=== PATIENT | male | born 1960 | race Caucasian/White ===

== ENCOUNTER 2018-06-27 18:51 | Emergency (ER) | payer OTHER ==
[2018-06-27 19:33] LABS: Absolute Lymphocytes (CBC) 1.1 K/uL (0.7-4.9); Absolute Neutrophil 7.9 K/uL (1.8-8.0); Basophils % 0.8 % (0-1.3); Eosinophils % 0.8 % (0-4.4); Lymphocytes % 10.5 % (15.3-44.8); MPV 6.9 fL (7.6-11.3); Monocytes % 9.6 % (3.3-12.3); RBC Red Blood Cell Count 4.39 M/uL (4.33-5.43)
[2018-06-27 19:50] LABS: Albumin 3.5 g/dL (3.4-5.0); Bilirubin Direct 0.1 mg/dL (0-0.2); Bilirubin Total 0.7 mg/dL (0.2-1.0); Potassium 3.9 mmol/L (3.5-5.1); Protein, Total 7.3 g/dL (6.4-8.2)
[2018-06-27] MEDS ORDERED: NA CHLORIDE 0.9% 1,000 ML ONE (19:54)
--- NOTE | 2018-06-27 23:24 | EDPHYS ---
Physician Documentation [facility] Name: Kole Stone Age: 57 yrs Sex: Male : 1960 Arrival Date: 06/27/2018 Time: 18:54 Bed 14 Private MD: out of town, doctor ED Physician Amor Jeffries HPI: 06/27 19:27 This 57 yrs old Male presents to ER via Ambulatory with complaints of [facility] Abdominal Pain. 19:27 The patient presents with abdominal pain. Onset: The symptoms/episode began/occurred jmm gradually, 1 day(s) ago. The symptoms do not radiate. Associated signs and symptoms: Pertinent positives: diarrhea, fever. The symptoms are described as achy. Modifying factors: The symptoms are alleviated by walking. This is a 57 year old male with a history of HTN that presents to the ED with complaints of left lower abdominal pain beginning last night with diarrhea. Patient states developing fever and chills today. Denies history of intraabdominal surgery. . Historical: - Allergies: 19:02 No Known Allergies; la1 - Home Meds: 19:04 fenofibrate 150 mg oral cap 1 cap once daily [Active]; niacin 500 mg Oral tab 1 tab la1 daily [Active]; verapamil 240 mg Oral C24P 1 cap once daily [Active]; losartan 50 mg oral tab 1 tab once daily [Active]; - PMHx: 19:02 Hypertension; la1 - Immunization history:: Adult Immunizations up to date. - Social history:: Smoking status: Patient/guardian denies using tobacco. - Ebola Screening: : No symptoms or risks identified at this time. ROS: 19:27 Back: Negative for injury and pain, MS/Extremity: Negative for injury and deformity, jmm Skin: Negative for injury, rash, and discoloration, Neuro: Negative for headache, weakness, numbness, tingling, and seizure. 19:27 Constitutional: Positive for body aches, fever. 19:27 Abdomen/GI: Positive for abdominal pain, diarrhea. 19:27 All other systems are negative. Exam: 19:27 Constitutional: This is a well developed, well nourished patient who is awake, alert, jmm and in no acute distress. Head/Face: atraumatic. Eyes: EOMI, no conjunctival erythema appreciated ENT: Moist Mucus Membranes Neck: Trachea midline, Supple Chest/axilla: Normal chest wall appearance and motion. Cardiovascular: Regular rate and rhythm. No edema appreciated Respiratory: Normal respirations, no respiratory distress appreciated 19:27 Back: Normal ROM Skin: General appearance color normal MS/ Extremity: Moves all extremities, no obvious deformities appreciated, no edema noted to the lower extremities Neuro: Awake and alert, normal gait Psych: Behavior is normal, Mood is normal, Patient is cooperative and pleasant 19:27 Abdomen/GI: Inspection: obese Bowel sounds: normal, Palpation: soft, mild abdominal tenderness, in the left lower quadrant. 19:27 Back: ROM is normal. Vital Signs: 19:03 BP 145 / 85; Pulse 110; Resp 16; Pulse Ox 96% on R/A; Weight 97.52 kg; Height 6 ft. 1 la1 in. (185.42 cm); 19:06 Temp 100.3(O); jb4 20:30 BP 121 / 82; Pulse 80; Resp 16; Pulse Ox 98% on R/A; jb4 21:50 BP 132 / 81; Pulse 87; Resp 16; Pulse Ox 99% on R/A; jb4 23:00 BP 152 / 85; Pulse 89; Resp 16; Pulse Ox 98% on R/A; jb4 06/28 00:00 BP 142 / 83; Pulse 94; Resp 16; Pulse Ox 98% on R/A; jb4 06/27 19:03 Body Mass Index 28.37 (97.52 kg, 185.42 cm) la1 MDM: 06/27 19:20 Patient medically screened. [facility] 22:47 Data reviewed: vital signs, nurses notes. Transition of care: After a detail discussion travis of the patient's case, care is transferred to Amor Jeffries MD. 23:18 ED course: Discussed lab. and CT Scan results with patient. Advised hospitalization for pkl IV antibiotics. Patient does not want to be admitted at this time. Want to try outpatient treatment. Patient said he will return for hospitalization if not better in 1 to 2 days.. 23:26 ED course: Patient will sign AMA. pkl 06/27 19:09 Order name: Basic Metabolic Panel; Complete Time: 19:51 [facility] 06/27 19:09 Order name: CBC with Diff; Complete Time: 19:51 [facility] 06/27 19:09 Order name: Creatinine for Radiology; Complete Time: 19:51 [facility] 06/27 19:09 Order name: Hepatic Function; Complete Time: 19:51 [facility] 06/27 19:09 Order name: Lipase; Complete Time: 19:51 [facility] 06/27 19:09 Order name: IV Saline Lock; Complete Time: 19:22 [facility] 06/27 19:09 Order name: Labs collected and sent; Complete Time: 19:22 [facility] 06/27 19:53 Order name: CT Abd/Pelvis - Without Cont [facility] Administered Medications: 19:48 Drug: NS 0.9% 1000 ml Route: IV; Rate: 1 bolus; Site: left antecubital; jb4 21:00 Follow up: Response: No adverse reaction; IV Status: Completed infusion jb4 23:31 Drug: Cipro 400 mg Volume: 200 ml; Route: IVPB; Infused Over: 60 mins; Site: left 4 antecubital; 06/28 00:30 Follow up: Response: No adverse reaction; IV Status: Completed infusion jb4 06/27 23:31 Drug: Flagyl 500 mg Volume: 100 ml; Route: IVPB; Rate: 200 ml/hr; Infused Over: 30 jb4 mins; Site: left antecubital; 06/28 00:00 Follow up: Response: No adverse reaction; IV Status: Completed infusion jb4 Disposition: 06/27 23:06 Co-signature as Attending Physician, Amor Jeffries MD. pkellie Disposition: 06/27/18 23:24 Discharged to Home. Impression: Moderately severe sigmoid diverticulitis. Cholelithiasis. - Condition is Stable. - Prescriptions for Flagyl 500 mg Oral Tablet - take 1 tablet by ORAL route every 6 hours for 7 days; 28 tablet. Cipro 500 mg Oral Tablet - take 1 tablet by ORAL route every 12 hours for 7 days; 14 tablet. - Medication Reconciliation Form, Thank You Letter, Antibiotic Education, Prescription Opioid Use form. - Follow up: Private Physician; When: 1 - 2 days; Reason: Re-evaluation by your physician. - Problem is new. - Symptoms are unchanged. Signatures: Dispatcher [employer] EDAmor Sorenson MD MD pkJerry Mario PA PA jmm Attema, Lee RN RN la1 Vlad Jaimes RN RN jb4 Corrections: (The following items were deleted from the chart) 20:04 19:25 Abdomen Pelvis W Con+CT.RAD.BRZ ordered. [facility] EDMS 06/28 00:36 06/27 23:24 06/27/2018 23:24 Discharged to Home. Impression: Moderately severe sigmoid jb4 diverticulitis. Cholelithiasis. Condition is Stable. Forms are Medication Reconciliation Form, Thank You Letter, Antibiotic Education, Prescription Opioid Use. Follow up: Private Physician; When: 1 - 2 days; Reason: Re-evaluation by your physician. Problem is new. Symptoms are unchanged. pkl
--- NOTE | 2018-06-27 23:24 | ER ---
Nurse's Notes [facility] Name: Kole Stone Age: 57 yrs Sex: Male : 1960 Arrival Date: 06/27/2018 Time: 18:54 Bed 14 Private MD: out of town, doctor Diagnosis: Moderately severe sigmoid diverticulitis. Cholelithiasis Presentation: 06/27 19:02 Presenting complaint: Patient states: I had diarrhea last night and began having LLQ la1 abd pain and chills this morning. Transition of care: patient was not received from another setting of care. Onset of symptoms was June 27, 2018. Risk Assessment: Do you want to hurt yourself or someone else? Patient reports no desire to harm self or others. Care prior to arrival: None. 19:02 Method Of Arrival: Ambulatory la1 19:02 Acuity: JOYCE 3 la1 Historical: - Allergies: 19:02 No Known Allergies; la1 - Home Meds: 19:04 fenofibrate 150 mg oral cap 1 cap once daily [Active]; niacin 500 mg Oral tab 1 tab la1 daily [Active]; verapamil 240 mg Oral C24P 1 cap once daily [Active]; losartan 50 mg oral tab 1 tab once daily [Active]; - PMHx: 19:02 Hypertension; la1 - Immunization history:: Adult Immunizations up to date. - Social history:: Smoking status: Patient/guardian denies using tobacco. - Ebola Screening: : No symptoms or risks identified at this time. Screenin:10 Abuse screen: Denies threats or abuse. Nutritional screening: No deficits noted. jb4 Tuberculosis screening: No symptoms or risk factors identified. Fall Risk None identified. Assessment: 19:10 General: Appears in no apparent distress. comfortable, Behavior is calm, cooperative, jb4 appropriate for age. Pain: Complains of pain in abdomen Pain does not radiate. Pain currently is 0 out of 10 on a pain scale. at worst was 10 out of 10 on a pain scale. Quality of pain is described as crampy, Pain began 1 day ago. Is intermittent. Neuro: Level of Consciousness is awake, alert, obeys commands, Oriented to person, place, time, situation. Cardiovascular: Patient's skin is warm and dry. Respiratory: Airway is patent Respiratory effort is even, unlabored, Respiratory pattern is regular, symmetrical. GI: Abdomen is round non-distended, Bowel sounds present X 4 quads. Abd is soft X 4 quads Abd is non tender in right upper quadrant, left upper quadrant and right lower quadrant Abdomen is tender to palpation in umbilical area, suprapubic area and left lower quadrant Reports lower abdominal pain, diarrhea, Patient currently denies nausea. : No signs and/or symptoms were reported regarding the genitourinary system. EENT: No signs and/or symptoms were reported regarding the EENT system. Derm: Skin is intact, Skin is pink, warm \T\ dry. Musculoskeletal: Circulation, motion, and sensation intact. 20:09 Reassessment: pt finished PO contrast. CT notified. jd3 20:30 Reassessment: Patient appears in no apparent distress at this time. Patient and/or jb4 family updated on plan of care and expected duration. Pain level reassessed. Patient is alert, oriented x 3, equal unlabored respirations, skin warm/dry/pink. 21:50 Reassessment: Patient appears in no apparent distress at this time. Patient and/or jb4 family updated on plan of care and expected duration. Pain level reassessed. Patient is alert, oriented x 3, equal unlabored respirations, skin warm/dry/pink. 23:00 Reassessment: Patient appears in no apparent distress at this time. Patient and/or jb4 family updated on plan of care and expected duration. Pain level reassessed. Patient is alert, oriented x 3, equal unlabored respirations, skin warm/dry/pink. Provider is at the bedside. Pt refused admission and would rather continue treatment outpatient. 06/28 00:00 Reassessment: Patient appears in no apparent distress at this time. Patient and/or jb4 family updated on plan of care and expected duration. Pain level reassessed. Patient is alert, oriented x 3, equal unlabored respirations, skin warm/dry/pink. Waiting for IV antibiotics to finish before discharge. Vital Signs: 06/27 19:03 BP 145 / 85; Pulse 110; Resp 16; Pulse Ox 96% on R/A; Weight 97.52 kg; Height 6 ft. 1 la1 in. (185.42 cm); 19:06 Temp 100.3(O); jb4 20:30 BP 121 / 82; Pulse 80; Resp 16; Pulse Ox 98% on R/A; jb4 21:50 BP 132 / 81; Pulse 87; Resp 16; Pulse Ox 99% on R/A; jb4 23:00 BP 152 / 85; Pulse 89; Resp 16; Pulse Ox 98% on R/A; jb4 18 00:00 BP 142 / 83; Pulse 94; Resp 16; Pulse Ox 98% on R/A; jb4 06/27 19:03 Body Mass Index 28.37 (97.52 kg, 185.42 cm) [facility] ED Course: 06/27 18:54 Patient arrived in ED. mr 18:54 out of town, doctor is Private Physician. mr 19:02 Triage completed. la1 19:02 Arm band placed on. la1 19:06 Vlad Jaimes, SUKHJINDER is Primary Nurse. [facility] 19:09 Jerry Velasquez PA is PHCP. [facility] 19:09 Amor Jeffries MD is Attending Physician. [facility] 19:10 Patient has correct armband on for positive identification. Placed in gown. Bed in low jb4 position. Call light in reach. Side rails up X 1. Pulse ox on. NIBP on. 19:10 Initial lab(s) drawn, by ED staff, sent to lab. Inserted saline lock: 20 gauge in left jb4 antecubital area, using aseptic technique. Blood collected. 19:30 Radiology exam delayed due to lab results not completed at this time. (BUN/Creatinine). kw1 22:08 CT Abd/Pelvis - Without Cont In Process Unspecified. EDMS 06/28 00:35 No provider procedures requiring assistance completed. IV discontinued, intact, jb4 bleeding controlled. Administered Medications: 06/27 19:48 Drug: NS 0.9% 1000 ml Route: IV; Rate: 1 bolus; Site: left antecubital; 4 21:00 Follow up: Response: No adverse reaction; IV Status: Completed infusion [facility] 23:31 Drug: Cipro 400 mg Volume: 200 ml; Route: IVPB; Infused Over: 60 mins; Site: left jb4 antecubital; 06/28 00:30 Follow up: Response: No adverse reaction; IV Status: Completed infusion [facility] 06/27 23:31 Drug: Flagyl 500 mg Volume: 100 ml; Route: IVPB; Rate: 200 ml/hr; Infused Over: 30 jb4 mins; Site: left antecubital; 06/28 00:00 Follow up: Response: No adverse reaction; IV Status: Completed infusion jb4 Outcome: 06/27 23:24 Discharge ordered by . oscar 06/28 00:35 Discharged to home ambulatory, with friend. jb4 Condition: stable Discharge instructions given to patient, Instructed on discharge instructions, follow up and referral plans. medication usage, Demonstrated understanding of instructions, follow-up care, medications, Prescriptions given X 2. 00:36 Patient left the ED. jb4 Signatures: Dispatcher [employer] EDMS Amor Jeffries MD MD pkl Mickail, Joel, PA PA jmm EricSarahy mr Aliya, Kenneth, RN RN la1 Vlad Jaimes RN RN jb4 Quinten Castillo RN RN Vandana Thornton kw1 Corrections: (The following items were deleted from the chart) 06/27 19:31 19:10 GI: Abdomen is round non-distended, Bowel sounds present X 4 quads. Abd is soft X jb4 4 quads Abd is non tender in right upper quadrant, left upper quadrant and right lower quadrant Abdomen is tender to palpation in umbilical area, suprapubic area and left lower quadrant jb4 23: 23:00 Reassessment: Patient appears in no apparent distress at this time. Patient jb4 and/or family updated on plan of care and expected duration. Pain level reassessed. Patient is alert, oriented x 3, equal unlabored respirations, skin warm/dry/pink. jb4
[2018-06-27] MEDS ORDERED: CIPROFLOXACIN 400mg IV 400 MG/200 ML BAG IV ONE (23:35)
[2018-06-27] MEDS ORDERED: METRONIDAZOLE 500mg IVPB 500 MG/100 ML BAG IV ONE (23:36)
--- NOTE | 2018-06-29 12:06 | RAD REPORT ---
EXAM DESCRIPTION: CT - Abdomen Pelvis Wo Contrast - 06/27/2018 10:08 pm CLINICAL HISTORY: 57 years Male, PO contrast only. COMPARISON: None. TECHNIQUE: 5 mm axial images of the abdomen and pelvis were obtained without intravenous contrast. 1 .5 mm reformatted coronal and sagittal images . This exam was performed according to our departmental dose-optimization program, which includes autom ated exposure control, adjustment of the mA and/or kV according to patient size and/or less of iterat wayne reconstruction technique. FINDINGS: Lung bases: Pneumatoceles are identified in the right middle lobe. Liver: Diffuse fatty liver infiltration. Spleen: Normal. Pancreas: Normal. Gallbladder: Cholelithiasis. Right adrenal gland: Normal. Left adrenal gland: Normal. Right kidney: There is a cortical cyst 3.8 x 4.1 cm Left kidney: There is an exophytic cortical cyst in the left upper pole which measures 1.8 x 1.4 cm Retroperitoneal structures: There is diffuse atherosclerosis of the abdominal aorta. There is mild ec dani of the mid abdominal aorta. Bowel survey: There is moderately severe diverticulitis involving the proximal sigmoid colon in the l eft lower quadrant anteriorly. In this area there is mural thickening with moderate severe pericoloni c edema. There is no abscess. This extends over a distance of 7 cm. The appendix is unremarkable. The distal ileum is unremarkable. Urinary bladder: Normal. Prostate gland: Normal size. Peritoneal cavity: Normal. Mesentery structures: Normal. Abdominal wall: No suspicious lesions. IMPRESSION: 1. Moderately severe sigmoid diverticulitis. 2. Diffuse fatty liver infiltration. 3. Cholelithiasis. 4. Atherosclerotic disease. Electronically signed by Chivo Segovia MD 06/27/2018 10:21 PM [employer] Due to temporary technical issues with the PACS/Fluency reporting system, reports are being signed by the in house radiologist as a courtesy to ensure prompt reporting. The interpreting radiologist is f ully responsible for the content of the report.
== END 2018-06-28 00:36 | disposition home or self-care (01) ==
LOC: ER 18:51
DX: K57.32 Diverticulitis of large intestine without perforation or abscess without bleeding (principal); K80.20 Calculus of gallbladder without cholecystitis without obstruction; I10 Essential (primary) hypertension
CPT/HCPCS: 36415; 74176; 80048; 80076; 83690; 85025; 96361; 96365; 96368; 99284; J0744; J7030

== ENCOUNTER 2018-08-09 23:59 | Emergency (ER) | payer OTHER ==
[2018-08-10 00:37] LABS: Absolute Lymphocytes (CBC) 1.6 K/uL (0.7-4.9); Absolute Monocytes 0.7 K/uL (0.1-1.3); Absolute Neutrophil 3.1 K/uL (1.8-8.0); Eosinophils % 2.1 % (0-4.4); Hematocrit 36.6 % (39.6-49.0); Lymphocytes % 28.9 % (15.3-44.8); MPV 7.3 fL (7.6-11.3); Monocytes % 12.5 % (3.3-12.3); RBC Red Blood Cell Count 4.07 M/uL (4.33-5.43)
[2018-08-10 00:40] LABS: Protime INR 1.06
[2018-08-10 00:57] LABS: ALT/SGPT 20 U/L (12-78); AST/SGOT 14 U/L (15-37); Albumin 3.4 g/dL (3.4-5.0); Alkaline Phosphatase 60 U/L (45-117); BUN Blood Urea Nitrogen 17 mg/dL (7-18); Bicarbonate 25 mmol/L (21-32); Bilirubin Direct 0.2 mg/dL (0-0.2); Bilirubin Total 0.6 mg/dL (0.2-1.0); Glucose Level 130 mg/dL (74-106); Magnesium 2.1 mg/dL (1.8-2.4); NT PRO-BNP 104 pg/mL (<125); Potassium 3.9 mmol/L (3.5-5.1); Protein, Total 7.1 g/dL (6.4-8.2); Sodium Level 144 mmol/L (136-145); Troponin (Emerg Dept Use Only) < 0.02 ng/mL (0.0-0.045)
[2018-08-10] MEDS ORDERED: KETOROLAC 30 MG/ML INJ ONE (02:45)
--- NOTE | 2018-08-10 04:12 | ER ---
Nurse's Notes [facility] Name: Kole Stone Age: 57 yrs Sex: Male : 1960 Arrival Date: 08/10/2018 Time: 00:05 Bed 4 Private MD: Diagnosis: Chest pain, unspecified Presentation: 08/10 00:18 Presenting complaint: Patient states: right chest wall pain, right arm pain started ak1 Thursday morning. pt hx blood clot in lungs 2 years ago. Transition of care: patient was not received from another setting of care. Onset of symptoms was August 09, 2018. Risk Assessment: Do you want to hurt yourself or someone else? Patient reports no desire to harm self or others. Care prior to arrival: None. 00:18 Method Of Arrival: Wheelchair ak1 00:18 Acuity: JOYCE 3 ak1 00:23 Initial Sepsis Screen: Does the patient meet any 2 criteria? No. Patient's initial ak1 sepsis screen is negative. Does the patient have a suspected source of infection? No. Patient's initial sepsis screen is negative. Triage Assessment: 00:20 General: Appears in no apparent distress. Behavior is calm, cooperative. Pain: ak1 Complains of pain in right clavicle, anterior aspect of right upper chest and right breast. Historical: - Allergies: 00:20 No Known Allergies; ak1 - Home Meds: 00:20 fenofibrate 150 mg Oral cap 1 cap once daily [Active]; losartan 50 mg Oral tab 1 tab ak1 once daily [Active]; niacin 500 mg Oral tab 1 tab daily [Active]; verapamil 240 mg Oral C24P 1 cap once daily [Active]; aspirin 81 mg Oral TbEC 1 tab once daily [Active]; - PMHx: 00:20 Hypertension; ak1 - Immunization history:: Adult Immunizations unknown. - Social history:: Smoking status: Patient/guardian denies using tobacco, the patient reports quitting approximately 2 years ago. - Ebola Screening: : No symptoms or risks identified at this time. Screenin:22 Abuse screen: Denies threats or abuse. Denies injuries from another. Nutritional ak1 screening: No deficits noted. Tuberculosis screening: No symptoms or risk factors identified. Fall Risk None identified. Assessment: 00:22 Pain: Pain does not radiate. Pain began Chavo morning. ak1 00:23 Pain: Aggravated by deep breathing, lying down. ak1 00:25 General: Appears in no apparent distress. comfortable, well groomed, well developed, ao well nourished, Behavior is calm, cooperative, appropriate for age. Pain: Complains of pain in chest Pain does not radiate. Neuro: Level of Consciousness is awake, alert, obeys commands, Oriented to person, place, time, situation, Appropriate for age Moves all extremities. Full function Speech is normal, Facial symmetry appears normal, Pupils are PERRLA. Cardiovascular: Heart tones S1 S2 Capillary refill < 3 seconds Patient's skin is warm and dry. Respiratory: Airway is patent Respiratory effort is even, unlabored, Respiratory pattern is regular, symmetrical. GI: No signs and/or symptoms were reported involving the gastrointestinal system. : No signs and/or symptoms were reported regarding the genitourinary system. EENT: No signs and/or symptoms were reported regarding the EENT system. Derm: Skin is intact, Skin is pink, warm \T\ dry. normal, Skin temperature is warm. Musculoskeletal: Circulation, motion, and sensation intact. Range of motion:. 01:32 Reassessment: Patient appears in no apparent distress at this time. Patient and/or ao family updated on plan of care and expected duration. Pain level reassessed. Patient back from CT. Waiting on CT report at this time. 02:40 Reassessment: Patient appears in no apparent distress at this time. Patient and/or ao family updated on plan of care and expected duration. Pain level reassessed. Second Troponin to be send and then dispo. Patient under no distress. 04:00 Reassessment: Patient appears in no apparent distress at this time. Patient and/or ao family updated on plan of care and expected duration. Pain level reassessed. Waiting on dispo orders. Vital Signs: 00:17 BP 128 / 69; Pulse 85; Resp 18; Temp 98.5(O); Pulse Ox 100% on R/A; Weight 90.72 kg ak1 (R); Height 6 ft. 1 in. (185.42 cm) (R); Pain 8/10; 01:31 BP 121 / 72; Pulse 75; Resp 18; Pulse Ox 95% on R/A; ao 02:41 BP 123 / 74; Pulse 68; Resp 18; Pulse Ox 98% ; ao 04:09 BP 123 / 74; Pulse 64; Resp 18; Pulse Ox 94% ; ao 00:17 Body Mass Index 26.39 (90.72 kg, 185.42 cm) ak1 ED Course: 00:05 Patient arrived in ED. es 00:10 Skyler Red MD is Attending Physician. tw4 00:17 Arm band placed on Patient placed in an exam room, on a stretcher, on manager cardiac, ak1 on pulse oximetry, Patient notified of wait time. 00:19 Triage completed. ak1 00:22 Patient maintains SpO2 saturation greater than 95% on room air. ak1 00:23 Patient has correct armband on for positive identification. Placed in gown. Bed in low ak1 position. Side rails up X 1. court recording monitor on. Pulse ox on. NIBP on. 00:26 X-ray completed. Portable x-ray completed in exam room. Patient tolerated procedure kw well. 00:27 XRAY Chest (1 view) In Process Unspecified. EDMS 00:29 Clark Roberts, RN is Primary Nurse. ao 01:00 Inserted saline lock: 20 gauge in right antecubital area, using aseptic technique. ao Blood collected. 01:54 CT Chest For PE Angio In Process Unspecified. EDMS 04:24 No provider procedures requiring assistance completed. IV discontinued, intact, ao bleeding controlled, No redness/swelling at site. Pressure dressing applied. Administered Medications: 02:39 Drug: TORadol 30 mg Route: IVP; Site: right antecubital; ao 03:59 Follow up: Response: No adverse reaction ao Outcome: 04:11 Discharge ordered by . tw4 04:24 Discharged to home ambulatory. ao 04:24 Condition: stable 04:24 Discharge instructions given to patient, Instructed on discharge instructions, follow up and referral plans. Demonstrated understanding of instructions, follow-up care, medications. 04:25 Patient left the ED. ao Signatures: Dispatcher [employer] EDMS Karen Cardoza Kimberlee kw Krenek, Amber, RN RN ak1 Clark Roberts, Skyler Cisneros RN, MD MD tw4
--- NOTE | 2018-08-10 04:13 | EDPHYS ---
Physician Documentation [facility] Name: Kole Stone Age: 57 yrs Sex: Male : 1960 Arrival Date: 08/10/2018 Time: 00:05 Bed 4 Private MD: ED Physician Skyler Rde HPI: 08/10 00:18 This 57 yrs old Male presents to ER via Unassigned with complaints of Chest tw4 Pain, Breathing Difficulty. 00:18 The patient or guardian reports chest pain that is located primarily in the anterior tw4 chest wall, right. Onset: today. The pain does not radiate. Associated signs and symptoms: Pertinent positives: shortness of breath. The chest pain is described as dull. Duration: The patient or guardian reports a single episode. Modifying factors: The symptoms are alleviated by nothing. the symptoms are aggravated by nothing. Severity of pain: At its worst the pain was moderate in the emergency department the pain is unchanged. The patient has not experienced similar symptoms in the past. Historical: - Allergies: 00:20 No Known Allergies; ak1 - Home Meds: 00:20 fenofibrate 150 mg Oral cap 1 cap once daily [Active]; losartan 50 mg Oral tab 1 tab ak1 once daily [Active]; niacin 500 mg Oral tab 1 tab daily [Active]; verapamil 240 mg Oral C24P 1 cap once daily [Active]; aspirin 81 mg Oral TbEC 1 tab once daily [Active]; - PMHx: 00:20 Hypertension; ak1 - Immunization history:: Adult Immunizations unknown. - Social history:: Smoking status: Patient/guardian denies using tobacco, the patient reports quitting approximately 2 years ago. - Ebola Screening: : No symptoms or risks identified at this time. ROS: 00:18 Cardiovascular: Positive for chest pain, Negative for edema, orthopnea, palpitations. tw4 00:20 Constitutional: Negative for fever, chills, and weight loss, Cardiovascular: Negative tw4 for chest pain, palpitations, and edema. 00:20 Abdomen/GI: Negative for abdominal pain, nausea, vomiting, diarrhea, and constipation, Back: Negative for injury and pain, MS/Extremity: Negative for injury and deformity, Skin: Negative for injury, rash, and discoloration, Neuro: Negative for headache, weakness, numbness, tingling, and seizure. 00:20 Cardiovascular: Positive for Negative for 00:20 Respiratory: Positive for shortness of breath, Negative for cough, dyspnea on exertion, hemoptysis, orthopnea. 00:20 Respiratory: Positive for Exam: 00:18 Constitutional: This is a well developed, well nourished patient who is awake, alert, tw4 and in no acute distress. Head/Face: Normocephalic, atraumatic. Chest/axilla: Normal chest wall appearance and motion. Nontender with no deformity. No lesions are appreciated. Cardiovascular: Regular rate and rhythm with a normal S1 and S2. No gallops, murmurs, or rubs. Normal PMI, no JVD. No pulse deficits. Respiratory: Lungs have equal breath sounds bilaterally, clear to auscultation and percussion. No rales, rhonchi or wheezes noted. No increased work of breathing, no retractions or nasal flaring. Abdomen/GI: Soft, non-tender, with normal bowel sounds. No distension or tympany. No guarding or rebound. No evidence of tenderness throughout. Back: No spinal tenderness. No costovertebral tenderness. Full range of motion. Skin: Warm, dry with normal turgor. Normal color with no rashes, no lesions, and no evidence of cellulitis. MS/ Extremity: Pulses equal, no cyanosis. Neurovascular intact. Full, normal range of motion. Neuro: Awake and alert, GCS 15, oriented to person, place, time, and situation. Cranial nerves II-XII grossly intact. Motor strength 5/5 in all extremities. Sensory grossly intact. Cerebellar exam normal. Normal gait. Vital Signs: 00:17 BP 128 / 69; Pulse 85; Resp 18; Temp 98.5(O); Pulse Ox 100% on R/A; Weight 90.72 kg ak1 (R); Height 6 ft. 1 in. (185.42 cm) (R); Pain 8/10; 01:31 BP 121 / 72; Pulse 75; Resp 18; Pulse Ox 95% on R/A; ao 02:41 BP 123 / 74; Pulse 68; Resp 18; Pulse Ox 98% ; ao 04:09 BP 123 / 74; Pulse 64; Resp 18; Pulse Ox 94% ; ao 00:17 Body Mass Index 26.39 (90.72 kg, 185.42 cm) ak1 MDM: 00:10 Patient medically screened. 4 07:02 Differential diagnosis: abnormal EKG, acute myocardial infarction, pulmonary embolus, tw4 stable angina. Data reviewed: vital signs, nurses notes. Data interpreted: monitor tech: rhythm is normal sinus rhythm, with Pulse oximetry: Interpretation: normal. Test interpretation: by ED physician or midlevel provider: ECG, plain radiologic studies. Counseling: I had a detailed discussion with the patient and/or guardian regarding: the historical points, exam findings, and any diagnostic results supporting the discharge/admit diagnosis, lab results, radiology results. Special discussion: Based on the patient's history, exam, and Dx evaluation, there is no indication for emergent intervention or inpatient Tx. It is understood by the patient/guardian that if the Sx's persist or worsen they need to return immediately for re-evaluation. I discussed with the patient/guardian in detail that at this point there is no indication for admission to the hospital. It is understood, however, that if the symptoms persist or worsen the patient needs to return immediately for re-evaluation. 08/10 00:10 Order name: Basic Metabolic Panel 08/10 00:10 Order name: CBC with Diff; Complete Time: 02:14 08/10 02:14 Interpretation: Normal except: RBC 4.07; HGB 12.4; HCT 36.6; MN% 12.5; MPV 7.3. 08/10 00:10 Order name: LFT's; Complete Time: 02:16 08/10 02:17 Interpretation: Normal except: AST 14; GLOB 3.7; A/G 0.9. 08/10 00:10 Order name: Magnesium; Complete Time: 02:17 08/10 02:17 Interpretation: Within normal limits: MG 2.1. 08/10 00:10 Order name: NT PRO-BNP; Complete Time: 02:17 08/10 02:17 Interpretation: Within normal limits: NT PRO-BNP 104. 08/10 00:10 Order name: PT-INR; Complete Time: 02:17 08/10 02:17 Interpretation: Normal except: PT 12.5. 08/10 00:10 Order name: Troponin (emerg Dept Use Only); Complete Time: 02:17 08/10 02:17 Interpretation: Within normal limits: TROPED < 0.02. 4 08/10 00:10 Order name: XRAY Chest (1 view) 08/10 00:10 Order name: EKG; Complete Time: 00:12 4 08/10 00:10 Order name: Cardiac monitoring; Complete Time: 00:29 4 08/10 00:18 Order name: CT Chest For PE Angio tw4 08/10 02:32 Order name: Troponin I ao 08/10 00:10 Order name: EKG - Nurse/Tech; Complete Time: 00:30 08/10 00:10 Order name: IV Saline Lock; Complete Time: 00:30 08/10 00:10 Order name: Labs collected and sent; Complete Time: 00:29 08/10 00:10 Order name: O2 Per Protocol; Complete Time: 00:29 08/10 00:10 Order name: O2 Sat Monitoring; Complete Time: 00:29 tw4 EC:10 Rate is 79 beats/min. Rhythm is regular. QRS [place] is Normal. CO interval is normal. QRS tw4 interval is normal. QT interval is normal. No Q waves. T waves are Normal. No ST changes noted. Clinical impression: Normal ECG. Interpreted by me. Reviewed by me. Administered Medications: 02:39 Drug: TORadol 30 mg Route: IVP; Site: right antecubital; ao 03:59 Follow up: Response: No adverse reaction ao Disposition: 08/10/18 04:11 Discharged to Home. Impression: Chest pain, unspecified. - Condition is Stable. - Discharge Instructions: Nonspecific Chest Pain, Pain Without a Known Cause. - Medication Reconciliation Form, Thank You Letter, Antibiotic Education, Prescription Opioid Use form. - Follow up: Private Physician; When: Upon discharge from the Emergency Department; Reason: If symptoms return, Recheck today's complaints, Continuance of care. - Problem is new. - Symptoms have improved. Signatures: Dispatcher [employer] EDMS Shreya Rudd RN RN ak1 Clark Roberts RN RN Skyler Friend MD MD tw4 Corrections: (The following items were deleted from the chart) 00:21 00:18 Constitutional: Negative for fever, chills, and weight loss, Respiratory: tw4 Negative for shortness of breath, cough, wheezing, and pleuritic chest pain, Abdomen/GI: Negative for abdominal pain, nausea, vomiting, diarrhea, and constipation, Back: Negative for injury and pain, MS/Extremity: Negative for injury and deformity, Skin: Negative for injury, rash, and discoloration, Neuro: Negative for headache, weakness, numbness, tingling, and seizure, tw4 01:53 00:19 Chest For Pe Angio ordered. EDKY EDMS 04:25 04:11 08/10/2018 04:11 Discharged to Home. Impression: Chest pain, unspecified. ao Condition is Stable. Forms are Medication Reconciliation Form, Thank You Letter, Antibiotic Education, Prescription Opioid Use. Follow up: Private Physician; When: Upon discharge from the Emergency Department; Reason: If symptoms return, Recheck today's complaints, Continuance of care. Problem is new. Symptoms have improved. tw4
--- NOTE | 2018-08-10 08:32 | RAD REPORT ---
EXAM DESCRIPTION: Asael Single View08/10/2018 12:29 am CLINICAL HISTORY: Shortness of breath COMPARISON: None FINDINGS: A large bleb is present within the medial right hemithorax. COPD The lungs appear clear of acute infiltrate. The heart is normal size
--- NOTE | 2018-08-10 11:35 | RAD REPORT ---
EXAM DESCRIPTION: CT - Chest For Pe Angio - 08/10/2018 5:14 am CLINICAL HISTORY: Chest pain COMPARISON: None TECHNIQUE: Axial [address] imaging of the thorax utilizing intravenous contrast. Reformatted coronal and sagital images reviewed. Reconstructed axial, coronal and sagittal maximum intensity projection images of the pulmonary vasculature also reviewed. This exam was performed according to our departmental dose-optimization program which includes use of Automated Exposure Control, adjustment of the mA and/or kV according to patient size and/or use of iterative reconstruction technique. FINDINGS: PULMONARY ARTERIES: Normal caliber main pulmonary artery. There is a filling defect within the central peripheral pulmonary vascular. No filling defect within the right atrium or ventricle. HEART/GREAT VESSELS: Heart is normal in size. No pericardial fluid. Normal caliber thoracic aorta. Normal branch pattern of the arch vessels. MEDIASTINUM/CHRIS: No adenopathy. Normal appearance of the central airways. Normal esophagus. LUNGS/PLEURA: There are numerous subpleural blebs throughout the upper lobes. There are large anterior right upper lobe and right middle lobe chris. There is a layering fluid level within the anterior right upper lobe bulla. There is no pneumothorax No consolidation. Mild bilateral lower lobe dependent atelectasis. No edema. CHEST WALL/SOFT TISSUES: Mild thoracic spondylosis. Unremarkable imaged thyroid. No axillary adenopathy. UPPER ABDOMEN: Mild decreased liver attenuation due to fatty infiltration. A few small stones are seen in the dependent gallbladder. No evidence of cholecystitis. Unremarkable spleen, imaged pancreas, adrenal glands, and superior pole of the right kidney. There is a superior left renal 1.8 cm cyst. Unremarkable imaged bowel loops. IMPRESSION: 1. No pulmonary embolism 2. 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 No surrounding inflammatory changes. 3. Fatty liver 4. Left renal cysts. 5. Cholelithiasis. No evidence of cholecystitis. Electronically signed by: Jody Heredia DO 08/10/2018 2:07 AM CDT Due to temporary technical issues with the PACS/Fluency reporting system, reports are being signed by the in house radiologist as a courtesy to ensure prompt reporting. The interpreting radiologist is fully responsible for the content of the report. ADARSH
== END 2018-08-10 04:25 | disposition home or self-care (01) ==
LOC: ER 23:59
DX: R07.9 Chest pain, unspecified (principal); I10 Essential (primary) hypertension; Z72.0 Tobacco use; Z79.82 Long term (current) use of aspirin
CPT/HCPCS: 36415; 71045; 71275; 80048; 80076; 83735; 83880; 84484; 85025; 85610; 93005; 96374; 99285; Q9967

== ENCOUNTER 2019-03-27 10:54 | Emergency (ER) | payer OTHER ==
[2019-03-27] MEDS ORDERED: LIDOCAINE 1% W/EPI 1:100,000 MDV 20 ML VIAL ONE (11:34)
[2019-03-27] MEDS ORDERED: DOXYCYCLINE 100 MG CAP PO ONE (11:53)
--- NOTE | 2019-03-27 11:59 | ER ---
Nurse's Notes [facility] Name: Kole Stone Age: 58 yrs Sex: Male : 1960 Arrival Date: 03/27/2019 Time: 10:56 Bed 2 Private MD: Diagnosis: Cutaneous abscess of foot;Puncture wound with foreign body, unspecified foot Presentation: 03/27 11:05 Presenting complaint: Patient states: He stepped on something a week and a half ago, he aj1 didn't think that he felt anything stuck in the wound, but now he is having he is having pain and swelling to the bottom of his left foot. Reports that his last tetanus shot was over 10 years ago. Transition of care: patient was not received from another setting of care. Onset of symptoms was 2018. Risk Assessment: Do you want to hurt yourself or someone else? Patient reports no desire to harm self or others. Initial Sepsis Screen: Does the patient meet any 2 criteria? No. Patient's initial sepsis screen is negative. Does the patient have a suspected source of infection? Yes: Skin breakdown/wound. Care prior to arrival: None. 11:05 Method Of Arrival: Ambulatory aj1 11:05 Acuity: JOYCE 3 aj1 Triage Assessment: 11:08 General: Appears in no apparent distress. Behavior is calm, cooperative, appropriate aj1 for age. Pain: Complains of pain in left foot. Historical: - Allergies: 11:08 No Known Allergies; aj1 - Home Meds: 11:08 verapamil 240 mg Oral C24P 1 cap once daily [Active]; losartan 50 mg Oral tab 1 tab aj1 once daily [Active]; pravastatin oral oral [Active]; - PMHx: 11:08 Hypertension; Hyperlipidemia; aj1 - PSHx: 11:08 facial surgery; leg surgery; aj1 - Immunization history:: Last tetanus immunization: > 10 years ago Flu vaccine is up to date. - Social history:: Smoking status: Patient/guardian denies using tobacco. - Ebola Screening: : Patient denies travel to an Ebola-affected area in the 21 days before illness onset. - Family history:: not pertinent. Screenin:09 Abuse screen: Denies threats or abuse. Denies injuries from another. Nutritional aj1 screening: No deficits noted. Tuberculosis screening: No symptoms or risk factors identified. 12:52 Fall Risk None identified. aj1 Assessment: 11:09 General: Appears in no apparent distress. comfortable, Behavior is calm, cooperative, aj1 appropriate for age. Pain: Complains of pain in left foot Pain does not radiate. Pain currently is 0 out of 10 on a pain scale. at worst was 3 out of 10 on a pain scale. Aggravated by weight bearing. Neuro: Level of Consciousness is awake, alert, obeys commands, Oriented to person, place, time, situation. Cardiovascular: Patient's skin is warm and dry. Respiratory: Airway is patent Respiratory effort is even, unlabored, Respiratory pattern is regular, symmetrical. GI: No signs and/or symptoms were reported involving the gastrointestinal system. : No signs and/or symptoms were reported regarding the genitourinary system. EENT: No signs and/or symptoms were reported regarding the EENT system. Derm: Abscess located on ball of left foot is quarter sized, is red, is raised. Musculoskeletal: No signs and/or symptoms reported regarding the musculoskeletal system. Circulation, motion, and sensation intact. 12:00 Reassessment: Discharge pending MD performing I\T\D of patient's abscess. aj1 Vital Signs: 11:08 BP 153 / 81; Pulse 85; Resp 18; Temp 98.7; Pulse Ox 99% on R/A; Weight 86.18 kg (R); aj1 Height 6 ft. 1 in. (185.42 cm) (R); Pain 0/10; 12:52 BP 149 / 87; Pulse 68; Resp 18; Pulse Ox 100% on R/A; aj1 11:08 Body Mass Index 25.07 (86.18 kg, 185.42 cm) aj1 ED Course: 10:56 Patient arrived in ED. as 10:59 Cynthia Chavez, SUKHJINDER is Primary Nurse. aj1 11:00 Paulino Ferreira MD is Attending Physician. idalmis 11:07 Triage completed. aj1 11:08 Arm band placed on. aj1 11:09 Patient has correct armband on for positive identification. Bed in low position. Call aj1 light in reach. Side rails up X 1. 11:09 No provider procedures requiring assistance completed. aj1 12:51 Patient did not have IV access during this emergency room visit. aj1 Administered Medications: 12:18 Drug: Neosporin Ointment 1 application Route: Topical; Site: affected area; aj1 12:24 Follow up: Response: No adverse reaction aj1 12:18 Drug: Doxycycline 200 mg Route: PO; aj1 12:25 Follow up: Response: No adverse reaction aj1 12:18 Drug: Bactrim (160 mg-800 mg (DS) 1 tablet Route: PO; aj1 12:25 Follow up: Response: No adverse reaction aj1 12:19 Drug: Tetanus-Diphtheria Toxoid Adult 0.5 ml {Customer Solutions Architect: [employer]. Exp: aj1 10/14/2020. Lot #: [id number]. } Route: IM; Site: left deltoid; 12:25 Follow up: Response: No adverse reaction aj1 Outcome: 11:58 Discharge ordered by MD. raygoza 12:51 Discharged to home ambulatory. aj1 12:51 Condition: good 12:51 Discharge instructions given to patient, Instructed on discharge instructions, follow up and referral plans. no drinking with medication, no driving heavy equipment, medication usage, Demonstrated understanding of instructions, follow-up care, medications, Prescriptions given X 3. 12:52 Patient left the ED. aj1 Signatures: Cynthia Chavez, RN RN aj1 Paulino Ferreira MD MD cha Martinez, Amelia as
--- NOTE | 2019-03-27 11:59 | EDPHYS ---
Physician Documentation [facility] Name: Kole Stone Age: 58 yrs Sex: Male : 1960 Arrival Date: 03/27/2019 Time: 10:56 Bed 2 Private MD: JASWANT Physician Paulino Ferreira HPI: 03/27 11:45 This 58 yrs old Male presents to ER via Ambulatory with complaints of Feet idalmis Swelling. 11:45 The patient presents with pain, swelling. The complaints affect the left foot. Context: idalmis The problem was sustained at home. Onset: The symptoms/episode began/occurred 2 day(s) ago. Modifying factors: The symptoms are alleviated by nothing, the symptoms are aggravated by nothing. Associated signs and symptoms: The patient has no apparent associated signs or symptoms. The patient has not experienced similar symptoms in the past. Historical: - Allergies: 11:08 No Known Allergies; aj1 - Home Meds: 11:08 verapamil 240 mg Oral C24P 1 cap once daily [Active]; losartan 50 mg Oral tab 1 tab aj1 once daily [Active]; pravastatin oral oral [Active]; - PMHx: 11:08 Hypertension; Hyperlipidemia; aj1 - PSHx: 11:08 facial surgery; leg surgery; aj1 - Immunization history:: Last tetanus immunization: > 10 years ago Flu vaccine is up to date. - Social history:: Smoking status: Patient/guardian denies using tobacco. - Ebola Screening: : Patient denies travel to an Ebola-affected area in the 21 days before illness onset. - Family history:: not pertinent. ROS: 11:45 Constitutional: Negative for fever, chills, and weight loss, Eyes: Negative for injury, idalmis pain, redness, and discharge, ENT: Negative for injury, pain, and discharge, Neck: Negative for injury, pain, and swelling, Cardiovascular: Negative for chest pain, palpitations, and edema, Respiratory: Negative for shortness of breath, cough, wheezing, and pleuritic chest pain, Abdomen/GI: Negative for abdominal pain, nausea, vomiting, diarrhea, and constipation, Back: Negative for injury and pain, : Negative for injury, bleeding, discharge, and swelling, Skin: Negative for injury, rash, and discoloration, Neuro: Negative for headache, weakness, numbness, tingling, and seizure, Psych: Negative for depression, anxiety, suicide ideation, homicidal ideation, and hallucinations, Allergy/Immunology: Negative for hives, rash, and allergies, Endocrine: Negative for neck swelling, polydipsia, polyuria, polyphagia, and marked weight changes, Hematologic/Lymphatic: Negative for swollen nodes, abnormal bleeding, and unusual bruising. 11:45 MS/extremity: Positive for decreased range of motion, pain, swelling, tenderness, of the right foot. Exam: 11:45 Constitutional: This is a well developed, well nourished patient who is awake, alert, idalmis and in no acute distress. Head/Face: Normocephalic, atraumatic. Eyes: Pupils equal round and reactive to light, extra-ocular motions intact. Lids and lashes normal. Conjunctiva and sclera are non-icteric and not injected. Cornea within normal limits. Periorbital areas with no swelling, redness, or edema. ENT: Nares patent. No nasal discharge, no septal abnormalities noted. Tympanic membranes are normal and external auditory canals are clear. Oropharynx with no redness, swelling, or masses, exudates, or evidence of obstruction, uvula midline. Mucous membranes moist. Neck: Trachea midline, no thyromegaly or masses palpated, and no cervical lymphadenopathy. Supple, full range of motion without nuchal rigidity, or vertebral point tenderness. No Meningismus. Chest/axilla: Normal chest wall appearance and motion. Nontender with no deformity. No lesions are appreciated. Cardiovascular: Regular rate and rhythm with a normal S1 and S2. No gallops, murmurs, or rubs. Normal PMI, no JVD. No pulse deficits. Respiratory: Lungs have equal breath sounds bilaterally, clear to auscultation and percussion. No rales, rhonchi or wheezes noted. No increased work of breathing, no retractions or nasal flaring. Abdomen/GI: Soft, non-tender, with normal bowel sounds. No distension or tympany. No guarding or rebound. No evidence of tenderness throughout. Back: No spinal tenderness. No costovertebral tenderness. Full range of motion. Male : Normal genitalia with no discharge or lesions. Skin: Warm, dry with normal turgor. Normal color with no rashes, no lesions, and no evidence of cellulitis. Neuro: Awake and alert, GCS 15, oriented to person, place, time, and situation. Cranial nerves II-XII grossly intact. Motor strength 5/5 in all extremities. Sensory grossly intact. Cerebellar exam normal. Normal gait. Psych: Awake, alert, with orientation to person, place and time. Behavior, mood, and affect are within normal limits. 11:45 Musculoskeletal/extremity: Extremities: noted in the arch of right foot: decreased ROM, pain, swelling, tenderness. Vital Signs: 11:08 BP 153 / 81; Pulse 85; Resp 18; Temp 98.7; Pulse Ox 99% on R/A; Weight 86.18 kg (R); aj1 Height 6 ft. 1 in. (185.42 cm) (R); Pain 0/10; 12:52 BP 149 / 87; Pulse 68; Resp 18; Pulse Ox 100% on R/A; aj1 11:08 Body Mass Index 25.07 (86.18 kg, 185.42 cm) [facility] Procedures: 11:57 I \T\ D: Incision and drainage was performed for an abscess of the right Prepped with [facility] Betadine, Anesthetized with 5 ml's 1% Lidocaine w/ Epi. Incised with #11 blade. Drained small amount Dressing: non-Adherent dressing, the patient tolerated the procedure well. MDM: 11:00 Patient medically screened. [facility] 11:56 Data reviewed: vital signs, nurses notes. [facility] 03/27 11:45 Order name: Dressing - Wound; Complete Time: 11:45 [facility] 03/27 11:45 Order name: Gloves, Sterile; Complete Time: 11:45 [facility] 03/27 11:45 Order name: Setup Suture Tray; Complete Time: 11:45 [facility] 03/27 11:45 Order name: Wound Care; Complete Time: 12:18 [facility] Administered Medications: 12:18 Drug: Neosporin Ointment 1 application Route: Topical; Site: affected area; aj 12:24 Follow up: Response: No adverse reaction aj1 12:18 Drug: Doxycycline 200 mg Route: PO; aj1 12:25 Follow up: Response: No adverse reaction aj1 12:18 Drug: Bactrim (160 mg-800 mg (DS) 1 tablet Route: PO; aj1 12:25 Follow up: Response: No adverse reaction [facility] 12:19 Drug: Tetanus-Diphtheria Toxoid Adult 0.5 ml {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 Exp: aj1 10/14/2020. Lot #: [id number]. } Route: IM; Site: left deltoid; 12:25 Follow up: Response: No adverse reaction aj1 Disposition: 03/27/19 11:58 Discharged to Home. Impression: Cutaneous abscess of foot, Puncture wound with foreign body, unspecified foot. - Condition is Stable. - Discharge Instructions: Skin Abscess, Puncture Wound, Skin Abscess, [id number], Puncture Wound, [id number], Percutaneous Abscess Drain. - Prescriptions for Tylenol- Codeine #3 300-30 mg Oral Tablet - take 2 tablets by ORAL route every 6 hours As needed; 26 tablet. Doxycycline Hyclate 100 mg Oral Tablet - take 1 tablet by ORAL route every 12 hours; 14 tablet. Bactrim DS 800- 160 mg Oral Tablet - take 1 tablet by ORAL route every 12 hours for 7 days; 14 tablet. - Medication Reconciliation Form, Thank You Letter, Antibiotic Education, Prescription Opioid Use form. - Follow up: Private Physician; When: 2 - 3 days; Reason: Recheck today's complaints, Continuance of care, Re-evaluation by your physician. - Problem is new. - Symptoms have improved. Signatures: Cynthia Chavez RN RN aj1 Paulino Ferreira MD MD cha Corrections: (The following items were deleted from the chart) 12:17 11:45 Ortho shoe ordered. [facility] bp 12:52 11:58 03/27/2019 11:58 Discharged to Home. Impression: Cutaneous abscess of foot; aj1 Puncture wound with foreign body, unspecified foot. Condition is Stable. Forms are Medication Reconciliation Form, Thank You Letter, Antibiotic Education, Prescription Opioid Use. Follow up: Private Physician; When: 2 - 3 days; Reason: Recheck today's complaints, Continuance of care, Re-evaluation by your physician. Problem is new. Symptoms have improved. [facility]
[2019-03-27] MEDS ORDERED: SMZ./TMP. 800/160 MG TABLET ONE (12:04)
[2019-03-27] MEDS ORDERED: TETANUS & DIPHTHERIA TOX,ADULT 0.5 ML VIAL ONE (12:05)
[2019-03-27 12:57] VITALS: TEMP 98.7
[2019-03-27 12:58] VITALS: BP 149/87; O2SAT 100
== END 2019-03-27 12:52 | disposition home or self-care (01) ==
LOC: ER 10:54
PROC: 0J9Q0ZZ Drainage of Right Foot Subcutaneous Tissue and Fascia, Open Approach (ICD-10-PCS; principal; 2019-03-27)
DX: S91.332A Puncture wound without foreign body, left foot, initial encounter (principal); L02.611 Cutaneous abscess of right foot; W26.9XXA Contact with unspecified sharp object(s), initial encounter; Y93.9 Activity, unspecified; Y92.9 Unspecified place or not applicable
CPT/HCPCS: 90471; 90714; 99283

== ENCOUNTER 2021-07-29 06:00 | Emergency (ER) | payer OTHER ==
--- OUTSIDE RECORDS SUMMARY | 2021-07-29 06:02 | XMS REPORT | Continuity of Care Document ---
:1960 Author Organization [facility] t Address [address] [place] [address] Care Team Providers Name Role Phone LEATHA APPLE Primary Care Physician Unavailable RADIOLOGY Attending Clinician Unavailable Radiology Attending Clinician Unavailable LEATHA APPLE Admitting Clinician Unavailable Payers Payer Name Policy Type Policy Number Effective Date Expiration Date Kendall [employer]UN[employer] CHOICE [id number] 2019 2020 00:00:00 POS II 00:00:00 Problems This patient has no known problems. Allergies, Adverse Reactions, Alerts Allergy Allergy Status Severity Reaction(s) Onset Inactive Treating Comm ents Source Name Type Date Date Clinician NO KNOWN Drug Active [facility] ALLERGIE Class it of [facility] Social History Social Habit Start Date Stop Date Quantity Comments Source Sex Assigned At [facility] to SARS-CoV-2 [facility] sure [facility] Smoking Status Start Date Stop Date Source Unknown if ever smoked [facility] Medications This patient has no known medications. Procedures Procedure Date / Time Performed Performing Clinician Sourrichard e XR HAND 3+ VW RIGHT 2019-11-01 19:37:31 James Burnett [facility] Encounters Start End Encounter Admission Attending Care Care Encounter Source Date/Time Date/Time Type Type Clinicians Facility Department ID 2019-12-14 2019-12-14 Outpatient R [facility] [id number] Univers 00:00:00 00:00:00 ity [facility] 2019-11-01 2019-11-01 Outpatient R RADIOLOGY [facility] [id number] [facility] 14:19[facility]23 [facility] 2019-11-01 Hospital Radiology [facility] [id number] Univers 14:19:00 23:59:00 [id number] [place] [id number] [id number] [facility] [address] Results Test Test Test Results Result Source Description Time Comments Comments XR HAND 3+ VW 2019-10- HISTORY: ?Pain. FINDINGS: [facility] [place] [address] AP, lateral, oblique views [facility] 19:39:13 of right hand showed no B ranch acute fractureor dislocation. 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 No bony erosions or juxta-articularosteoporosis detected. No soft tissue calcifications. CONCLUSIONS: No acute fracture or dislocation in right hand. [facility], Radiant Results Inft User - 11/01/2019 2:40 PM CDTHISTORY: Pain.FINDINGS: AP, lateral, oblique views of right hand showed no acute fractureor dislocation. 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 No bony erosions or juxta-articularosteoporosis detected. No soft tissue calcifications.CONCLUSIONS: No acute fracture or dislocation in right hand.
--- NOTE | 2021-07-29 06:30 | ER ---
Nurse's Notes [facility] Name: Kole Stone Age: 60 yrs Sex: Male : 1960 Arrival Date: 07/29/2021 Time: 06:04 Bed 5 Private MD: Diagnosis: Abdominal pain, unspecified Presentation: 07/29 06:14 Chief complaint: Patient states: "I've had gall stones on and off for a few years now, vc1 I woke up at 0400 in pretty bad pain.". Coronavirus screen: Vaccine status: Patient reports being unvaccinated. At this time, the client does not indicate any symptoms associated with coronavirus-19. Ebola Screen: No symptoms or risks identified at this time. 06:14 Method Of Arrival: Ambulatory vc1 06:15 Initial Sepsis Screen: Does the patient meet any 2 criteria? No. Patient's initial vc1 sepsis screen is negative. Does the patient have a suspected source of infection? No. Patient's initial sepsis screen is negative. Risk Assessment: Do you want to hurt yourself or someone else? Patient reports no desire to harm self or others. Onset of symptoms was July 29, 2021 at 04:00. 06:15 Acuity: JOYCE 3 vc1 Triage Assessment: 06:15 General: Appears in no apparent distress. uncomfortable, Behavior is calm, cooperative, vc1 appropriate for age. Pain: Complains of pain in right upper quadrant Pain radiates to right subscapular area Pain currently is 8 out of 10 on a pain scale. GI: Abd is soft Abd is non tender Reports upper abdominal pain. Historical: - Allergies: 06:17 No Known Allergies; vc1 - Home Meds: 06:17 losartan 50 mg Oral tab 1 tab once daily [Active]; pravastatin Oral [Active]; verapamil vc1 240 mg Oral C24P 1 cap once daily [Active]; - PMHx: 06:17 Hyperlipidemia; Hypertension; vc1 - PSHx: 06:17 None; vc1 - Immunization history:: Adult Immunizations up to date, Client reports having NOT received the Covid vaccine. Flu vaccine is not up to date. - Social history:: Smoking status: Patient reports the use of cigarette tobacco products, smokes one pack cigarettes per day. Screenin:15 Abuse screen: Denies threats or abuse. Nutritional screening: No deficits noted. vc1 Tuberculosis screening: No symptoms or risk factors identified. Fall Risk None identified. Assessment: 06:18 Reassessment: Patient and/or family updated on plan of care and expected duration. Pain vc1 level reassessed. Patient denies pain at this time. Patient states feeling better. Patient states symptoms have improved. 06:33 GI: Bowel sounds present X 4 quads. Reports "I am feeling much better. I guess whatever tw5 it was moved. I would rather just go home now.". Vital Signs: 06:15 BP 167 / 98; Pulse 79; Resp 20; Temp 97.7; Pulse Ox 100% on R/A; Weight 95.25 kg; vc1 Height 6 ft. 1 in. (185.42 cm); Pain 8/10; 06:33 BP 165 / 90; Pulse 79; Resp 18; Pulse Ox 100% on R/A; Pain 0/10; tw5 06:15 Body Mass Index 27.71 (95.25 kg, 185.42 cm) vc1 ED Course: 06:04 Patient arrived in ED. 06:04 Jerry Velasquez PA is PHCP. [facility] 06:04 Sesar Reid DO is Attending Physician. [facility] 06:15 Arm band placed on right wrist. vc1 06:15 Patient has correct armband on for positive identification. Pulse ox on. NIBP on. vc1 06:17 Triage completed. vc1 06:18 Rogelio Gill, RN is Primary Nurse. as6 06:33 No provider procedures requiring assistance completed. Patient did not have IV access tw5 during this emergency room visit. Administered Medications: No medications were administered Outcome: 06:30 Discharge ordered by . [facility] 06:33 Discharged to home ambulatory. tw5 06:33 Condition: good 06:33 Condition: improved 06:33 Discharge instructions given to patient, Instructed on discharge instructions, follow up and referral plans. medication usage, Demonstrated understanding of instructions, follow-up care, medications, Prescriptions given X 2. 06:35 Patient left the ED. tw5 Signatures: Jerry Velasquez PA PA Karen Rollins Netta Toscano tw5 Rogelio Gill, SUKHJINDER RN as6 Reema Lopez RN RN vc1
--- NOTE | 2021-07-29 06:30 | EDPHYS ---
Physician Documentation [facility] Name: Kole Stone Age: 60 yrs Sex: Male : 1960 Arrival Date: 07/29/2021 Time: 06:04 Bed 5 Private MD: ED Physician Sesar Reid HPI: 07/29 06:20 This 60 yrs old Male presents to ER via Ambulatory with complaints of Abdominal Pain. [facility] 06:20 The patient presents with abdominal pain. Onset: The symptoms/episode began/occurred jm acutely, last night. The symptoms radiate to right back. Associated signs and symptoms: Pertinent positives: nausea. The symptoms are described as achy, crampy, sharp. Modifying factors: The symptoms are alleviated by nothing, the symptoms are aggravated by nothing. This is a 60-year-old male with history of hyperlipidemia and hypertension the presents emerged part with epigastric abdominal pain beginning last night that he attributes to his gallbladder. Patient states that he took 3 ibuprofen last night without much relief. Patient states that approximately 5 minutes prior to arrival the pain did decrease. Denies any active vomiting, diarrhea, fever, chills.. Historical: - Allergies: 06:17 No Known Allergies; vc1 - Home Meds: 06:17 losartan 50 mg Oral tab 1 tab once daily [Active]; pravastatin Oral [Active]; verapamil vc1 240 mg Oral C24P 1 cap once daily [Active]; - PMHx: 06:17 Hyperlipidemia; Hypertension; vc1 - PSHx: 06:17 None; vc1 - Immunization history:: Adult Immunizations up to date, Client reports having NOT received the Covid vaccine. Flu vaccine is not up to date. - Social history:: Smoking status: Patient reports the use of cigarette tobacco products, smokes one pack cigarettes per day. ROS: 06:20 Constitutional: Negative for fever, chills, and weight loss, Cardiovascular: Negative jm for chest pain, palpitations, and edema, Respiratory: Negative for shortness of breath, cough, wheezing, and pleuritic chest pain. 06:20 Abdomen/GI: Positive for abdominal pain. 06:20 All other systems are negative. Exam: 06:20 Constitutional: This is a well developed, well nourished patient who is awake, alert, jmm and in no acute distress. Head/Face: atraumatic. Eyes: EOMI, no conjunctival erythema appreciated ENT: Moist Mucus Membranes Neck: Trachea midline, Supple Chest/axilla: Normal chest wall appearance and motion. Cardiovascular: Regular rate and rhythm. No edema appreciated Respiratory: Normal respirations, no respiratory distress appreciated 06:20 Back: Normal ROM Skin: General appearance color normal MS/ Extremity: Moves all extremities, no obvious deformities appreciated, no edema noted to the lower extremities Neuro: Awake and alert Psych: Behavior is normal, Mood is normal, Patient is cooperative and pleasant 06:20 Abdomen/GI: No acute abdominal pain on palpation, no guarding or rebound, no McBurney sign, no Cortez sign, abdomen is soft in all 4 quadrants.. Vital Signs: 06:15 BP 167 / 98; Pulse 79; Resp 20; Temp 97.7; Pulse Ox 100% on R/A; Weight 95.25 kg; vc1 Height 6 ft. 1 in. (185.42 cm); Pain 8/10; 06:33 BP 165 / 90; Pulse 79; Resp 18; Pulse Ox 100% on R/A; Pain 0/10; tw5 06:15 Body Mass Index 27.71 (95.25 kg, 185.42 cm) vc1 MDM: 06:10 Patient medically screened. [facility] 06:22 Data reviewed: vital signs, nurses notes. Counseling: I had a detailed discussion with travis the patient and/or guardian regarding: the historical points, exam findings, and any diagnostic results supporting the discharge/admit diagnosis, the need for outpatient follow up, to return to the emergency department if symptoms worsen or persist or if there are any questions or concerns that arise at home. ED course: Patient is a patient is alert and nontoxic in appearance in the ED. Due to decrease in pain, patient elects to leave the ED prior to a full evaluation for acute cholecystitis or other acute intra-abdominal processes. Patient exhibits ability to make reasonable decisions. Patient is given strict return precautions for increased abdominal pain, fever, vomiting, etc. Patient understood and agrees plan of care.. Administered Medications: No medications were administered Disposition Summary: 07/29/21 06:30 Discharge Ordered Location: Home [facility] Condition: Stable landy Diagnosis - Abdominal pain, unspecified [facility] Followup: travis - With: Private Physician - When: 2 - 3 days - Reason: Recheck today's complaints, Continuance of care, Re-evaluation by your physician Discharge Instructions: - Discharge Summary Sheet [facility] - Abdominal Pain, Adult [facility] Forms: - Medication Reconciliation Form [facility] - Thank You Letter [facility] - Antibiotic Education [facility] - Prescription Opioid Use [facility] Prescriptions: - Pepcid 20 mg Oral Tablet - take 1 tablet by ORAL route every 12 hours for 10 days; 20 tablet; Refills: 0, [facility] Product Selection Permitted - Reglan 10 mg Oral Tablet - take 1 tablet by ORAL route every 6 hours take 30 minutes before meals and at [facility] bedtime; 20 tablet; Refills: 0, Product Selection Permitted Addendum: 08/03/2021 06:23 Co-signature as Attending Physician, Sesar Reid DO I agree with the assessment and m plan of care. Signatures: Jerry Velasquez PA PA jmm Sims, Marcus, DO DO ms3 Reema Lopez, RN RN vc1
[2021-07-29 06:47] VITALS: TEMP 97.7; O2SAT 100
[2021-07-29 06:48] VITALS: BP 165/90
== END 2021-07-29 06:35 | disposition home or self-care (01) ==
LOC: ER 06:00
DX: R10.13 Epigastric pain (principal); R11.0 Nausea; E78.5 Hyperlipidemia, unspecified; F17.210 Nicotine dependence, cigarettes, uncomplicated; I10 Essential (primary) hypertension
CPT/HCPCS: 99283

== ENCOUNTER 2023-09-17 00:27 | Emergency (ER) | payer OTHER ==
--- OUTSIDE RECORDS SUMMARY | 2023-09-17 00:30 | XMS REPORT | Continuity of Care Document ---
Author Name Unknown Address [address] [facility] [address] [place] [address] [facility] thconnect Address [address] [facility] [address] [place] [address] Care Team Providers Care Enrollment Management Coordinator Name Role Phone STEPH APPLE Primary Care Physician Unavailable Abhishek Brito Attending Clinician Unav ailable Jose De Jesus Willams Cardiology Attending Clinician Unavailable RADIOLOGY Attending Clinician Unavailable Radiology Attending Clinician Unavailable Abhishek Brito Admitting Clinician Unav ailable Jose De Jesus Willams Cardiology Admitting Clinician Unavailable STEPH APPLE Admitting Clinician Un available Payers Payer Name Policy Type Policy Number Effective Date Expirati on Date Source [employer] CHOICE POS II [id number] 2019 00:00:00 2020 00:00:00 Allergies, Adverse Reactions, Alerts Allergy Name Allergy Type Status Severity Reaction(s) Onset Date Inactive Date Treating Clinician Comments Source No Known Allergie s DA Active U -08 00:00: 00 [facility] No Known Allergie s DA Active U 2-07 00:00: 00 [facility] No Known Allergie s DA Active U 1-24 00:00: 00 [facility] NO KNOWN ALLERGIE S Drug Class Active [facility] Social History Social Habit Start Date Stop Date Quantity Comments Source Sex Assigned At [facility] Exposure to SARS-CoV-2 (event) Not sure [facility] Smoking Status Start Date Stop Date Source Unknown if ever smoked General acute hospital Procedures Procedure Date / Time Performed Performing Clinicia n Source XR HAND 3+ VW RIGHT 2019-11-01 19:37:31 Jose Daniel Burnett [facility] Encounters Start Date/Time End Date/Time Encounter Type Admission Type Attending [facility] Facility Care Department Encounter ID Source 2023-08-17 05:59:00 2023-08-17 05:59:00 Outpatient Abhishek Odom [facility] [id number] [facility] 2023-06-20 07:03:00 2023-06-20 07:03:00 Outpatient Jose De Jesus Banda [facility] [id number] [facility] 2023-06-06 05:04:00 2023-06-06 05:04:00 Outpatient Jose De Jesus Banda [facility] [id number] [facility] 2019-12-14 00:00:00 2019-12-14 00:00:00 Outpatient R [facility] [id number] [facility] 2019-11-01 14:19:23 2019-11-01 23:59:00 Outpatient R RADIOLOGY [facility] [id number] [facility] 2019-11-01 14:19:00 2019-11-01 23:59:00 Hospital Encounter Radiology [facility] [id number] [facility] Results Test Description Test Time Test Comments Results Result Co mments Source CBC W/AUTO [id number] 08:26:00* Test Item Value Reference Range Interpretation Comme nts WHITE BLOOD CELL (test code = WBC) 6.3 x10 3/uL 4.8-10.8 N RED BLOOD CELL (test code = RBC) 4.89 x10 6/uL 4.70-6.10 N HEMOGLOBIN (test code = HGB) 14.7 g/dL 14.0-18.0 N HEMATOCRIT (test code = HCT) 43.4 % 42.0-52.0 N MEAN CELL VOLUME (test code = MCV) 88.8 fL 80.0-94.0 N MEAN CELL HGB (test code = MCH) 30.1 pg 27-31 N MEAN CELL HGB CONCENTRATION (test code = MCHC) 33.9 G/DL 33-36.5 N RED CELL DISTRIBUTION WIDTH (test code = RDW) 13.1 % 12.9-16.9 N PLATELET COUNT (test code = PLT) 217 x10 3/uL 150-440 N MEAN PLATELET VOLUME (test c ode = MPV) 8.9 fL 8.9-12.4 N NEUTROPHIL % (test code = NT%) 58.9 % 42.2-75.2 N LYMPHOCYTE % (test code = LY%) 26.2 % 20.5-51.1 N MONOCYTE % (test code = MO%) 9.6 % 1.7-9.3 H EOSINOPHIL % (test code = EO%) 2.9 % 0.0-7.0 N BASOPHIL % (test code = BA%) 1.0 % 0-2.5 N NEUTROPHIL # (test code = NT#) 3.68 x10 3/uL 1.80-7.70 N LYMPHOCYTE # (test code = LY#) 1.64 x10 3/uL 1.00-4.80 N MONOCYTE # (test code = MO#) 0.60 x10 3/uL 0.00-0.80 N EOSINOPHIL # (test code = EO#) 0.18 x10 3/uL 0.00-0.45 N BASOPHIL # (test code = BA#) 0.06 x10 3/uL 0.0-0.20 N - CT ABD PELVIS W/O [id number] 09:54:00 [facility] 1960 Sex: M Name: FREDA STONE [facility] : 1960 Age/S: 62 / M [id number] Unit #: [id number] Loc: [place] [address] Phys: Jose De Jesus Willams MD Cardiology Acct: [id number] Dis Date: Status: REG [facility] PHONE #: [phone] Exam Date: 06/20/2023906 FAX #: Reason: ANEURYSM EXAMS: CPT: [id number] CT ABD PELVIS W/O CONT 90321 HISTORY: ANEURYSM EXAM: CT abdomen and pelvis without IV contrast. Location code:C3 TECHNIQUE:Contrast - No IV contrast was given, no oral contrast was given Noncontrast phase - abdomen and pelvis Reconstructions - coronal and sagittal planes One or more of the following dosereduction techniques were used: Automated exposure control, adjustment of the mA and/or kV according to patient size, and/or utilization of iterative reconstruction technique. Unless otherwise specified, incidental findings do not required dedicated imaging follow-up. COMPARISON: None FINDINGS: Statements: Lack of intravenous contrast compromises evaluation of abdominopelvic organs and vasculature. Lack of oral contrast compromises evaluation of bowel. Thoracic: Mild linear scarring/atelectasis. No pleural or pericardial effusion. Hepatobiliary: The liver parenchyma is significantly and diffusely low in attenuation most consistent with severe hepatic steatosis. No focal hepatic lesion is seen. Focal areas of fatty sparing are present. The gallbladder is significantly contracted but grossly normal. No biliary dilation. Pancreas: Normal. Spleen: Normal. Adrenals: Normal. Genitourinary: The kidneys are normal in size and contour. There is no evidence of hydronephrosis of either kidney.Multiple simple Bosniak type I cysts are present in both kidneys, the largest measures up to 5.4 cmin the interpolar right kidney; benign, which do not required initial targeted follow-up evaluation. There is no evidence of renal calculus. Evaluation of the bladder is limited, but no PAGE 1 Signed Report (CONTINUED) Name: FREDA STONE : 1960 Age/S: 62 / M [id number] Unit #: [id number] Loc: [place] [address] Phys: Jose De Jesus Willams MD Cardiology Acct: [id number] Dis Date: Status: [facility] PHONE #: [phone] Exam Date: 06/20/2023906 FAX #: Reason: ANEURYSMEXAMS: CPT: [id number] CT ABD PELVIS W/O CONT 08242 (Continued) obvious bladder abnormality is present. Gastrointestinal: No bowel obstruction or perienteric inflammation. The appendix is normal. Scattered colonic diverticulosis. No CT evidence of acute diverticulitis. Vascular: Atherosclerotic calcifications are seen within the aorta and branch vessels. Short segment fusiform infrarenal aortic aneurysm measuring approximately 3.0 cm AP x 3.0 cm TR over distance of 2.9 cm CC (for example image 40, series 2 and sagittal image 80, series 2).Normal caliber iliac vessels. Lymphatics: No enlarged lymph nodes by CT size criteria. Bones/Soft Tissues: No acute osseous findings. Multilevel degenerative changes are present throughout the included spine, most pronounced at L5 and S1 with significant DJD No ventral hernias. Peritoneum/Other: No extraluminal air. No extraluminal fluid. IMPRESSION: 1. No acute process in the abdomen or pelvis. 2. Marked hepatic steatosis present. No definite focal hepatic mass seen. 3. Short segment infrarenal abdominal aortic aneurysm measuring up to 3.0 cm as detailed above. Cannot assess for any aortic dissection given lack of intravenous contrast. Consider 6 month follow-up evaluation to ensure stability. 4. Additional chronic/nonacute findings as abov e. at 0954 Reported and signed by: Vandana Jimenez M.D. CC: Jose De Jesus Herrera Cardiology Екатерина DELGADO Technologist:Marcelnia Marin RT(R) CTDI: DLP: Trnscb Date/Time: 06/20/2023 (54) [id number] Orig Print D/T: S: 06/20/2023 (1315) PAGE 2 Signed ReportCOMPREHENSIVE METABOLIC [id number] 08:03:00* Test Item Value Reference Range Interpretation Comme nts SODIUM (test code = NA) 137 mmol/L 134-147 N POTASSIUM (test code = K) 3.9 mmol/L 3.4-5.0 N CHLORIDE (test code = CL) 104 mmol/L 100-108 N CARBON DIOXIDE (test code = CO2) 25 mmol/L 21-32 N ANION GAP (test code = GAP) 8.0 GAP calc 4.0-15.0 N GLUCOSE (test code = GLU) 124 MG/DL 70-110 H BLOOD UREA NITROGEN (test code = BUN) 19 MG/DL 7-18 H GLOMERULAR FILTRATION RATE (test code = GFR) 48 estGFR >60 L The Glomerular Filtration Rate is a calculated parameterbased on serum Creatinine, patient age and sex. GFR valuesless than 60 mL/min/1.73 square meters are indicative ofChronic Kidney Disease. Values less than 15 mL/min/1.73square meters indicate Kidney failure. The calculation forGFR is based on the CKD-EPI (2020) calculation. This formulais race indifferent and is the recommended formula for GFRby the National Kidney Foundation for Adults.The GFR will not calculate if the sex is unknown or if thepatient's age is <18 years. CREATININE (test code = CREAT) 1.6 MG/DL 0.8-1.3 H TOTAL PROTEIN (test code = PROT) 7.3 G/DL 6.4-8.2 N ALBUMIN (test code = ALB) 3.8 G/DL 3.4-5.0 N GLOBULIN (test code = GLOB) 3.5 GM/dL ALBUMIN/GLOBULIN RATIO (test code = A/G) 1.1 RATIO 1.2-2.2 L CALCIUM (test code = CA) 9.4 MG/DL 8.5-10.1 N BILIRUBIN TOTAL (test code = BILT) 0.50 MG/DL 0.2-1.2 N SGOT/AST (test code = AST) 29 Unit/L 15-37 N SGPT/ALT (test code = ALT) 44 Unit/L 12-78 N ALKALINE PHOSPHATASE TOTAL (test code = ALKP) 81 Unit/L 50-136 N LIPID PROFILE (CORONARY RISK)2023-06-20 08:03:00* Test Item Value Reference Range Interpretation Comme nts TRIGLYCERIDES (test code = TRIG) 316 MG/DL 0-150 H CHOLESTEROL (test code = CHOL) 171 MG/DL 133-200 N CHOLESTEROL/HDL RATIO (test code = CHOLHDL) 4.28 RATIO See_Comment RISK ASSOCIATED WITH CHOL/HDL RATIOS: RISK MALE FEMALE1/2 AVERAGE 3.43 3.27AVERAGE 4.97 4.442X AVERAGE 9.55 7.053X AVERAGE 23.39 11.04 NOTE THAT THE REFERENCE VALUE IS RELATED TO RISK LEVELS ASRECOMMENDED BY THE [facility]ATIONAL [facility], [facility]G, AND [facility]LOOD INSTITUTE. [Automated message] The system which generated this result transmitted reference range: 0-. The reference range was not used to interpret this result as normal/abnormal. HDL CHOLESTEROL (test code = HDL) 40 MG/DL 40-59 N NON-HDL CHOLESTEROL (test code = NHDL) 131 mg/dL <130 H LIPOPROTEIN LDL (test code = LDL) 92 MG/DL 0-129 N <100 [id number] 0 - 129 NEAR OPTIMAL/ABOVE [id number] - 159 [id number] - 189 HIGH>OR= 190 VERY HIGHNOTE THAT GUIDELINES ARE PROVIDED BY NATIONAL CHOLESTEROLEDUCATION PROGRAM ADULT TREATMENT PANEL III LDL/HDL (test code = LDL/HDL) 2.30 Ratio See_Comment N [Automated messa ge] The system which generated this result transmitted reference range: 1.48-3.22 Avg. The reference range was not used to interpret this result as normal/abnormal. [id number] 08:03:00* Test Item Value Reference Range Interpretation Comme nts MAGNESIUM (test code = MAG) 1.9 MG/DL 1.8-2.4 N THROMBOPLASTIN TIME [id number] 07:40:00* Test Item Value Reference Range Interpretation Comme nts THROMBOPLASTIN TIME PARTIAL (test code = PTT) 30.7 SECONDS 26-35 N CBC W/AUTO [id number] 07:26:00* Test Item Value Reference Range Interpretation Comme nts WHITE BLOOD CELL (test code = WBC) 7.3 K/mm3 3.5-11.0 N RED BLOOD CELL (test code = RBC) 5.29 M/mm3 4.70-6.10 N HEMOGLOBIN (test code = HGB) 15.5 G/DL 12.3-15.9 N HEMATOCRIT (test code = HCT) 46.5 % 35.8-46.7 N MEAN CELL VOLUME (test code = MCV) 87.9 Fl 86.3-98.9 N MEAN CELL HGB (test code = MCH) 29.3 pg 28.9-34.4 N MEAN CELL HGB CONCETRATION (test code = MCHC) 33.3 G/DL 32.1-34.5 N RED CELL DISTRIBUTION WIDTH (test code = RDW) 12.7 SD 11.5-14.5 N PLATELET COUNT (test code = PLT) 242 K/mm3 150-450 N MEAN PLATELET VOLUME (test c ode = MPV) 8.50 fL 7.0-9.6 N NEUTROPHIL % (test code = NT%) 52.0 % 40-76 N IMMATURE GRANULOCYTE % (test code = IG%) 0.5 % 0.0-5.0 N LYMPHOCYTE % (test code = LY%) 35.3 % 20.5-51.1 N MONOCYTE % (test code = MO%) 8.7 % 1.7-9.3 N EOSINOPHIL % (test code = EO%) 2.5 % 0.0-6.0 N BASOPHIL % (test code = BA%) 1.0 % 0.0-2.0 N NUCLEATED RBC % (test code = NRBC%) 0.0 /100WBC% 0.0-1.0 N NEUTROPHIL # (test code = NT#) 3.8 K/mm3 1.8-7.6 N IMMATURE GRANULOCYTE # (test code = IG#) 0.04 x10 3/uL 0.00-0.03 H LYMPHOCYTE # (test code = LY#) 2.6 K/mm3 0.6-3.0 N MONOCYTE # (test code = MO#) 0.6 K/mm3 0.2-1.5 N EOSINOPHIL # (test code = EO#) 0.2 K/mm3 0.0-0.4 N BASOPHIL # (test code = BA#) 0.1 K/mm3 0.0-0.2 N NUCLEATED RBC # (test code = NRBC#) 0.0 K/mm3 0.00-0.01 N LIPID PROFILE (CORONARY RISK)2023-06-06 06:44:00* Test Item Value Reference Range Interpretation Comme nts TRIGLYCERIDES (test code = TRIG) 582 MG/DL 0-150 H CHOLESTEROL (test code = CHOL) 188 MG/DL 133-200 N CHOLESTEROL/HDL RATIO (test code = CHOLHDL) 5.70 RATIO See_Comment RISK ASSOCIATED WITH CHOL/HDL RATIOS: RISK MALE FEMALE1/2 AVERAGE 3.43 3.27AVERAGE 4.97 4.442X AVERAGE 9.55 7.053X AVERAGE 23.39 11.04 NOTE THAT THE REFERENCE VALUE IS RELATED TO RISK LEVELS ASRECOMMENDED BY THE NATIONAL HEART, [facility]UNG, AND BLOOD INSTITUTE. [Automated message] The system which generated this result transmitted reference range: 0-. The reference range was not used to interpret this result as normal/abnormal. HDL CHOLESTEROL (test code = HDL) 33 MG/DL 40-59 L NON-HDL CHOLESTEROL (test code = NHDL) 155 mg/dL <130 H LIPOPROTEIN LDL (test code = LDL) 97 MG/DL 0-129 N <100 [id number] 0 - 129 NEAR OPTIMAL/ABOVE [id number] - 159 [id number] - 189 HIGH>OR= 190 VERY HIGHNOTE THAT GUIDELINES ARE PROVIDED BY NATIONAL CHOLESTEROLEDUCATION PROGRAM ADULT TREATMENT PANEL III LDL/HDL (test code = LDL/HDL) 2.93 Ratio See_Comment N [Automated messa ge] The system which generated this result transmitted reference range: 1.48-3.22 Avg. The reference range was not used to interpret this result as normal/abnormal. [id number] 06:44:00* Test Item Value Reference Range Interpretation Comme nts MAGNESIUM (test code = MAG) 2.2 MG/DL 1.8-2.4 N COMPREHENSIVE METABOLIC [id number] 06:44:00* Test Item Value Reference Range Interpretation Comme nts SODIUM (test code = NA) 136 mmol/L 134-147 N POTASSIUM (test code = K) 3.4 mmol/L 3.4-5.0 N CHLORIDE (test code = CL) 105 mmol/L 100-108 N CARBON DIOXIDE (test code = CO2) 26 mmol/L 21-32 N ANION GAP (test code = GAP) 5.0 GAP calc 4.0-15.0 N GLUCOSE (test code = GLU) 129 MG/DL 70-110 H BLOOD UREA NITROGEN (test code = BUN) 26 MG/DL 7-18 H GLOMERULAR FILTRATION RATE (test code = GFR) 45 estGFR >60 L The Glomerular Filtration Rate is a calculated parameterbased on serum Creatinine, patient age and sex. GFR valuesless than 60 mL/min/1.73 square meters are indicative ofChronic Kidney Disease. Values less than 15 mL/min/1.73square meters indicate Kidney failure. The calculation forGFR is based on the CKD-EPI (202) calculation. This formulais race indifferent and is the recommended formula for GFRby the National Kidney Foundation for Adults.The GFR will not calculate if the sex is unknown or if thepatient's age is <18 years. CREATININE (test code = CREAT) 1.7 MG/DL 0.8-1.3 H TOTAL PROTEIN (test code = PROT) 7.7 G/DL 6.4-8.2 N ALBUMIN (test code = ALB) 3.7 G/DL 3.4-5.0 N GLOBULIN (test code = GLOB) 4.0 GM/dL ALBUMIN/GLOBULIN RATIO (test code = A/G) 0.9 RATIO 1.2-2.2 L CALCIUM (test code = CA) 8.9 MG/DL 8.5-10.1 N BILIRUBIN TOTAL (test code = BILT) 0.50 MG/DL 0.2-1.2 N SGOT/AST (test code = AST) 24 Unit/L 15-37 N SGPT/ALT (test code = ALT) 36 Unit/L 12-78 N ALKALINE PHOSPHATASE TOTAL (test code = ALKP) 96 Unit/L 50-136 N PROTHROMBIN [id number] 06:14:00* Test Item Value Reference Range Interpretation Comme nts PT PATIENT (test code = PTP) 11.2 SECONDS 9.3-12.9 N INTERNATIONAL NORMAL RATIO (test code = INR) 1.02 INR Unit 0.8-1.2 N TARGET INR BY INDICATION Indication INR1. Prophylaxis of venous thrombosis 2.0 - 3.0 (orthopedic surgery), Prophylaxis of venous thrombosis (other than high-risk surgery), Treatment of Deep Vein Thrombosis/Pulmonary Embolism, Prevention of systemic embolism - Tissue heart valves, Acute Myocardial Infarction (to prevent systemic embolism), Valvular heart disease, Acute Myocardial Infarction (to prevent systemic embolism), Valvular heart disease, Atrial Fibrillation, Bileaflet mechanical valve in aortic position.2. Mechanical prosthetic valves (high risk), 2.5 - 3.5 Presence of Lupus Anticoagulant or Antiphospholipid Antibodies, Prevention of systemic embolism - Acute Myocardial Infarction (to prevent recurrent infarct). CBC W/AUTO [id number] 06:07:00* Test Item Value Reference Range Interpretation Comme nts WHITE BLOOD CELL (test code = WBC) 9.8 K/mm3 3.5-11.0 N RED BLOOD CELL (test code = RBC) 5.26 M/mm3 4.70-6.10 N HEMOGLOBIN (test code = HGB) 15.5 G/DL 12.3-15.9 N HEMATOCRIT (test code = HCT) 46.6 % 35.8-46.7 N MEAN CELL VOLUME (test code = MCV) 88.6 Fl 86.3-98.9 N MEAN CELL HGB (test code = MCH) 29.5 pg 28.9-34.4 N MEAN CELL HGB CONCETRATION (test code = MCHC) 33.3 G/DL 32.1-34.5 N RED CELL DISTRIBUTION WIDTH (test code = RDW) 13.3 SD 11.5-14.5 N PLATELET COUNT (test code = PLT) 276 K/mm3 150-450 N MEAN PLATELET VOLUME (test c ode = MPV) 8.60 fL 7.0-9.6 N NEUTROPHIL % (test code = NT%) 59.2 % 40-76 N IMMATURE GRANULOCYTE % (test code = IG%) 0.9 % 0.0-5.0 N LYMPHOCYTE % (test code = LY%) 29.1 % 20.5-51.1 N MONOCYTE % (test code = MO%) 7.9 % 1.7-9.3 N EOSINOPHIL % (test code = EO%) 2.3 % 0.0-6.0 N BASOPHIL % (test code = BA%) 0.6 % 0.0-2.0 N NUCLEATED RBC % (test code = NRBC%) 0.0 /100WBC% 0.0-1.0 N NEUTROPHIL # (test code = NT#) 5.8 K/mm3 1.8-7.6 N IMMATURE GRANULOCYTE # (test code = IG#) 0.09 x10 3/uL 0.00-0.03 H LYMPHOCYTE # (test code = LY#) 2.8 K/mm3 0.6-3.0 N MONOCYTE # (test code = MO#) 0.8 K/mm3 0.2-1.5 N EOSINOPHIL # (test code = EO#) 0.2 K/mm3 0.0-0.4 N BASOPHIL # (test code = BA#) 0.1 K/mm3 0.0-0.2 N NUCLEATED RBC # (test code = NRBC#) 0.0 K/mm3 0.00-0.01 N XR HAND 3+ VW [id number] 19:39:13HISTORY: ?Pain. FINDINGS: AP, lateral, oblique views of right hand showed no acute fractureor dislocation. Mild degenerative type arthritis is noted affectinginterphalangeal joints of all the fingersand thumb, MCP joint of themiddle finger with [...] acute fracture or dislocation in right hand. [facility] Notes Date/Time Note Provider Source 2023-08-17 11:00:00 [id number]/[id number]+[id number]:00:[address] [facility] Operative Report REPORT #: [id number] REPORT STATUS: Signed DATE: 08/17/23 TIME: 1100 PATIENT: FREDA STONE UNIT #: [id number] #: [id number] ROOM #: BED: : 60 AGE: 62 SEX: M ATTEND: Abhishek Brito MD ADM AUTHOR: Abhishek Brito MD ATTENTION EDITS and/or ADDENDA must be made in Patient Keeper for this note. Edits and ammendments created in [facility] are not visible in Patient Keeper or the legal medical record (HPF). -- OPERATION -- SURGERY START DATE/TIME:2023-08-17 11:00 PRE-OPERATIVE DIAGNOSIS:1. Bilateral lower extremity claudication and rest pain.2. Coronary artery disease. POST-OPERATIVE DIAGNOSIS:1. Bilateral lower extremity claudication and rest pain.2. Coronary artery disease. INDICATION(S):Patient is a 62-year-old man with a history of coronary disease and progressionof his bilateral lower extremity pain. He is a candidate for bilateral lowerextremity angiogram and revascularization. NAME OF PROCEDURE:1. Bilateral lower extremity angiogram.2. Abdominal aortogram. 3. Ultrasound-guided left common femoral artery puncture and arteriotomyclosure using 6 Swedish Angio-Seal. 4. Moderate sedation using fentanyl and midazolam for 26 minutes. TIME OUT COMPLETED:Yes SURGEON:Abhishek Brito MD ECONOMICS INSTRUCTOR(S):Dunia Michael MD; Gigi Hilton MD ANESTHESIA:Moderate sedation and local. A dedicated and trained nurse administeredmoderate sedation under my direct supervision. Vital signs and pulse oximetrywere continuously monitored. ESTIMATED BLOOD LOSS:2 ml's FINDINGS:Ultrasound imaging was stored demonstrating left common femoral artery patencyand successful intraluminal needle cannulation. Abdominal aortogram showedpatent left renal artery. The right renal artery was cranially displaced andwas not visualized. There was no significant infrarenal aortic stenosis. Therewas 40% stenosis at the origin of the left common iliac artery and less than30% stenosis in the right common iliac artery. There was good flow tobilateral femoral-popliteal arteries and bilateral three-vessel tibial arteryrunoff to the ankles. There was no significant peripheral arterial occlusivedisease that could explain his lower extremity pain. We will evaluate him forother etiologies such as spinal stenosis. SPECIMEN(S) REMOVED AND/OR ALTERED:None COMPLICATION(S):None -- DESCRIPTION -- DESCRIPTION OF TECHNIQUE/PROCEDURE:Medications: 2 g Ancef; 0.5 mg midazolam; 25 mcg fentanyl; 4 mg ondansetron. Fluoroscopy time: 0.6 minutes. Radiation: 232 mGy. Contrast: 55 mL of Isovue-250. Procedure detail: Patient was identified in the preprocedure holding area and brought into theoperating room where bilateral groins were prepped and draped in usual sterilefashion. Intravenous antibiotics were given. A timeout was performed. Moderatesedation was begun with fentanyl and midazolam. A mixture of 1% lidocaine and 0.5% ropivacaine was infused into the left groin.Micropuncture needle was used to cannulate the left common femoral artery in aretrograde fashion under ultrasound guidance. A 5 Swedish sheath was placedusing Seldinger technique. A 0.035 inch [employer] System[employer] Advantage wire was navigatedinto the abdominal aorta under fluoroscopy. Over the wire, an Omni Flushcatheter was placed. The wire was removed and abdominal aortogram wasperformed. This showed widely patent left renal artery. The right renal arterywas not visualized. There is no significant infrarenal aortic stenosis. Thecatheter was withdrawn into the distal abdominal aorta. Aortofemoral angiogramwas then performed showing no significant iliac disease. There was 40% stenosis in the proximal left common femoral artery and less than 30% stenosison the right. There was good flow into the femoral-popliteal arteries. Runoffangiogram showed patent flow into the tibial arteries to the ankle. There wasno indication for revascularization. The wire was reinserted and the catheter was removed. The puncture site wasadequate to accept a closure device and a 6 Swedish Angio-Seal was deployed withgood hemostasis. Sterile dressings were applied. The patient tolerated theprocedure well and was transferred to the postanesthesia care unit insatisfactory condition. Lap, needle, and instrument counts were correct. I was scrubbed and present forthe entire case Signed in PatientKeeper by Abhishek Brito MD on 08/18/23 at 08:18 at 0818ATTENTION EDITS and/or ADDENDA must be made in Patient Keeper for this note. Edits and ammendments created in [facility] are not visible in Patient Keeper or the legal medical record (HPF). RPT #: [id number] OF REPORTOPOperative [id number]:00:00P.OO-[id number] Available for patient [id number]:19:32 [facility] 2023-08-17 10:56:00 [id number] [id number]:56:[address] [facility] ([facility]) Med Order Sheet REPORT #: [id number] REPORT STATUS: Signed DATE: 08/17/23 TIME: 1055 PATIENT: FREDA STONE UNIT #: [id number] #: [id number] ROOM #: BED: : 60 AGE: 62 SEX: M ATTEND: Abhishek Brito MD ADM AUTHOR: Gigi Hilton MD R4 ATTENTION EDITS and/or ADDENDA must be made in Patient Keeper for this note. Edits and ammendments created in [facility] are not visible in Patient Keeper or the legal medical record ([facility]). Discharge Medication Reconciliation DISCHARGE MEDICATION LISTaspirin chewable tablet Dose: OralClopidogrel Tab (Plavix Tab) Dose: OralLosartan Tab (Cozaar Tab) Dose: OralRosuvastatin Tab (Crestor Tab ) Dose: OralVerapamil PM Cap (NF) (Verelan PM Cap (NF)) Dose: Oral :55 at 1056ATTENTION EDITS and/or ADDENDA must be made in Patient Keeper for this note. Edits and ammendments created in [facility] are not visible in Patient Keeper or the legal medical record ([facility]). [facility] #: [id number] OF REPORTCLClinical hgyv4672-09-57Z28:56:00P.QN-[id number] ailable for patient nbbbOMAVATFLKFMZOW3422-73-56N40:56:40 [facility] 2023-08-17 10:55:00 [id number] uMw4Fw/9q6rDFDQSFhbZRIn5ffhdu +fSZFLkIsS6jtUrf/mr/XuWd16B0659-03-77O35:55:[address] [facility] ([facility]) Brief Operative Report REPORT #: [id number] REPORT STATUS: Signed DATE: 08/17/23 TIME: 1055 PATIENT: FREDA STONE UNIT #: [id number] #: [id number] ROOM #: BED: : 60 AGE: 62 SEX: M ATTEND: Abhishek Brito MD ADM AUTHOR: Gigi Hilton MD R4 ATTENTION EDITS and/or ADDENDA must be made in Patient Keeper for this note. Edits and ammendments created in [facility] are not visible in Patient Keeper or the legal medical record ([facility]). -- BRIEF OP NOTE -- PRE-OPERATIVE DIAGNOSIS:critical limb ischemia POST-OPERATIVE DIAGNOSIS:rest pain, bilateral lower extremities NAME OF PROCEDURE:abdominal aortogram with runoff SURGEON:Abhishek Brito MD ECONOMICS INSTRUCTOR(S):Dunia Perdomo Megan Vu FINDINGS:iliac stenosis < 50% ESTIMATED BLOOD LOSS (ML'S):5 SPECIMEN(S) REMOVED AND/OR ALTERED:none Signed in PatientKeeper by Gigi Hilton MD R4 on 08/17/23 at 10:57 Cosigned by ABHISHEK BRITO MD on 08/17/23 at 20:08 at 2007 at 2007ATTENTION EDITS and/or ADDENDA must be made in Patient Keeper for this note. Edits and ammendments created in [facility] are not visible in Patient Keeper or the legal medical record ([facility]). [facility] #: [id number] OF REPORTOPOperative cmxbro4974-53-42X23:55:00P.WL-[id number] Available for patient quyyHXSIECIJILQKBS6151-02-65I99:08:59 [facility] 2023-08-17 07:29:00 [id number] JyibvTb0/yb1+TdXnfCHD2uEHkjuY lDPvSuOpmy24KVkvM7GeWvk+ZMM9378-26-25A98:29:65817 1-[address] [address]WDXCEKY NAME: FREDA STONE ADMIT DATE: 08/17/23ACCOUNT NO: [id number] ROOM NO: AGE: 62 REPORT TYPE: eELECTROCARDIOGRAM SEX: M ADMITTING PHYSICIAN: ATTENDING PHYSICIAN: Abhishek Brito MD Order:[id number] Reason : ANESTHESIA PROTOCOL Test Date/Time Stamp:ThuAug 17 2023 07:29:51Blood Pressure : / mmHGVent. Rate : 069 BPM Atrial Rate : 069 BPM P-R Int : 202 ms QRS Dur : 082 ms QT Int : 424 ms P-R-T Axes : 046 031 039 degrees QTc Int : 454 ms Normal sinus rhythmNormal ECGNo previous ECGs availableConfirmed by fellow Tiffany Celis ([id number]) on 08/17/2023 11:32:31 AMConfirmed by KARTHIK MOREIRA ([id number]) on 08/20/2023 8:10:40 AM Referred By: Abhishek Brito Confirmed by:KARTHIK MOREIRA at 0810 PATIENT NAME: FREDA STONE RAY .[id number] AVAvailable for patient sqnfLKJRKAUDZTMLWI0427-12-44I89:11:10 [facility] 2023-06-20 14:40:00 [id number]/ph QF6yOob9EUNGVTNSIEcgYNNH+7hrY zlpX3Zq/VJoy5EqpTvHLaGq3WiJ4591-61-23Z67:40:00 [facility] ([facility])Vascular Surgery Consult NoteREPORT#:[id number] REPORT STATUS: SignedREPORT INITIALIZATION DATE:06/20/23 TIME:1440 PATIENT: FREDA STONE UNIT #: [id number]#: [id number] ROOM/BED:: 60 AGE: 62 SEX: M ATTEND: Jose De Jesus Willams MD CardiologyADM AUTHOR: Abhishek Brito MDREPT SERVICE DT/TIME: 06/20/23 1440* ALL edits or amendments must be made on the electronic/computer document * History of Present IllnessRequesting Clinician: Dontrell Coello for consult:[facility] complaint:bilateral thigh pain; erectile dysfunctionHPI:Patient is a 62-year-old man with a history of coronary artery disease, remote myocardial infarction, pulmonary embolism, small infrarenal abdominal aortic aneurysm, and abnormal stress test. He had peripheral angiogram on 06/06/2023 Mahendra Porter showing greater than 70% right common iliac artery stenosis and 60%stenosis on the left. He is scheduled to have coronary angiogram today. Noncontrast CT done today shows 3 x 3 cm infrarenal abdominal aortic aneurysm. He denies abdominal pain. He does report short distance severe bilateral thigh pain, worse in the right. He also reports significant erectile dysfunction. History - Adult longitudinalPast medical history:Reports: Coronary artery disease, Hypertension, Abdominal aortic aneurysm, Dyslipidemia, Periph arterial disease, Prior PR, Venous thromboembolism. Family history:Reports: Abdominal aortic aneurysm, Heart disease. Alcohol use: Alcohol useSmoking status for patients 13 years old or older: Current every day smokerDate last smoked: 06/11/23Years smoked: 50Pack years: 0Medications:Home Medications: Medication Dose/Rte/Freq Days Qty Entered Last Max Daily Dose Reviewed ROSUVASTATIN (CRESTOR) 10 MG PO BEDTIME 06/03/23 Strength: 10 MG TAB 1239 VERAPAMIL ER (VERELAN) 180 MG PO DAILY 06/03/23 Strength: 180 MG CAP.SR.24H 1240 LOSARTAN (COZAAR) 100 MG PO DAILY 06/03/23 Strength: 100 MG TAB 1240 ASPIRIN EC (ECOTRIN) 81 MG PO DAILY 06/03/23 Strength: 81 MG TAB.EC 1240 CLOPIDOGREL (PLAVIX) 75 MG PO DAILY 06/17/23 Strength: 75 MG TAB 0833 Current Hospital Medications:Antihistamine Drugs Sig/Violette Start time Last Medication Dose Route Stop Time Status Admin Diphenhydramine HCl 25 MG ONCALL 06/20 0500 CKD 06/20 (BENADRYL) PO 07/19 0459 0717 Blood Formation,Coagulation Sig/Violette Start time Last Medication Dose Route Stop Time Status Admin Clopidogrel Bisulfate 75 MG DAILY 06/21 0900 AC (Plavix) PO 07/20 0859 Heparin Sodium 1,500 ML .STK-MED ONE 06/20 930 DC (Porcine) IV (HEPARIN 1,000 UNITS/ NS 500 ML) Heparin Sodium 0 .STK-MED ONE 06/20 928 DC (Porcine) .ROUTE (HEPARIN SODIUM) Cardiovascular Drugs Sig/Violette Start time Last Medication Dose Route Stop Time Status Admin Losartan Potassium 100 MG DAILY 06/21 899 AC (COZAAR) PO 07/20 08 Atorvastatin Calcium 20 MG BEDTIME 06/20 2100 AC (LIPITOR) PO 07/19 2058 Nitroglycerin/ 250 ML .STK-MED ONE 06/20 1014 DC Dextrose IV (NITROGLYCERIN 200 MCG/ML DRIP) Verapamil HCl 0 .STK-MED ONE 06/20 101 DC (ISOPTIN) .ROUTE Lidocaine HCl 0 .STK-MED ONE 06/20 929 DC (lidocaine HCL) .ROUTE Central Nervous System Agents Sig/Violette Start time Last Medication Dose Route Stop Time Status Admin Aspirin 81 MG DAILY 06/21 899 AC (ECOTRIN) PO 07/20 858 Midazolam HCl 0 .STK-MED ONE 06/20 1012 DC (VERSED) .ROUTE Fentanyl Citrate 0 .STK-MED ONE 06/20 928 DC (SUBLIMAZE) .ROUTE Midazolam HCl 0 .STK-MED ONE 06/20 928 DC (VERSED) .ROUTE Diazepam 5 MG ONCALL 06/20 050 CKD 06/20 (VALIUM) PO 07/19 0459 0717 Diagnostic Agents Sig/Violette Start time Last Medication Dose Route Stop Time Status Admin Iopamidol 0 .STK-MED ONE 06/20 930 DC (ISOVUE-300) .ROUTE Iopamidol 100 ML ONCE PRN 06/20 844 AC (ISOVUE-370) IV Electrolytic, Caloric, And Sivakumar Sig/Violette Start time Last Medication Dose Route Stop Time Status Admin Sodium Chloride 100 ML ONCE PRN 06/20 0745 AC (SODIUM CHLORIDE IV 0.9%) Sodium Chloride 1,000 ML ASDIR 06/20 0500 AC (0.9% Sodium IV 07/16 0844 Chloride) Allergies:Coded Allergies:No Known Allergies (06/17/23) Ambulatory status: Independent ObjectiveVS/I O:Last Documented: Result Date Time Pulse Ox 99 06/20 1300 B/P 150/83 06/20 1300 O2 Delivery Room air 06/20 1300 Temp 98.0 06/20 1300 Pulse 64 06/20 1300 Resp 21 06/20 1300 PATIENT WEIGHT: Weight (lb): 215Weight (oz): 6.27Weight (kg): 97.700 General appearance: alert, awake, oriented, no acute distress, pleasant, conversationalHEENT: anicteric, sclera clearNeck: full range of motion, supple/no meningismusCardiovascular: normal heart sounds, regular rate rhythmRespiratory: clear to auscultation, symmetric expansionAbdomen: soft, non-tenderExtremities: dry, normalPulse assess: Vascular pulse assess: Palpated: R femoral, L femoral, R posterior tibialis, L posterior tibialis, Rdorsalis pedis, L dorsalis pedis. Neuro/MEDICAL DATA ENTRY CLERK: gait not tested, alert, oriented X 3, normal speech, no motor deficits, no sensory deficitsSkin: normal color, normal temperatureLymphatics: no lymphadenopathyPsychiatry: normal affect, normal judgment/insightFindings/Data:Laboratory Tests 06/20 0707 Chemistry Sodium (134 - 147 mmol/L) 137 Potassium (3.4 - 5.0 mmol/L) 3.9 Chloride (100 - 108 mmol/L) 104 Carbon Dioxide (21 - 32 mmol/L) 25 Anion Gap (4.0 - 15.0 GAP calc) 8.0 BUN (7 - 18 MG/DL) 19 H Creatinine (0.8 - 1.3 MG/DL) 1.6 H Glomerular Filtr Rate (>60 estGFR) 48 L Glucose (70 - 110 MG/DL) 124 H Calcium (8.5 - 10.1 MG/DL) 9.4 Magnesium (1.8 - 2.4 MG/DL) 1.9 Total Bilirubin (0.2 - 1.2 MG/DL) 0.50 AST (15 - 37 Unit/L) 29 ALT (12 - 78 Unit/L) 44 Total Alk Phosphatase (50 - 136 Unit/L) 81 Total Protein (6.4 - 8.2 G/DL) 7.3 Albumin (3.4 - 5.0 G/DL) 3.8 Globulin (GM/dL) 3.5 Albumin/Globulin Ratio (1.2 - 2.2 RATIO) 1.1 L Triglycerides (0 - 150 MG/DL) 316 H Cholesterol (133 - 200 MG/DL) 171 LDL Cholesterol Measurd (0 - 129 MG/DL) 92 Non-HDL Cholesterol (<130 mg/dL) 131 H HDL Cholesterol (40 - 59 MG/DL) 40 LDL/HDL Ratio (1.48 - 3.22 Avg Ratio) 2.30 Cholesterol/HDL Ratio (0 RATIO) 4.28 Laboratory Tests 06/20 07 Coagulation PTT (Rosalind) (26 - 35 SECONDS) 30.7 Laboratory Tests 06/20 0707 Hematology WBC (3.5 - 11.0 K/mm3) 7.3 RBC (4.70 - 6.10 M/mm3) 5.29 Hgb (12.3 - 15.9 G/DL) 15.5 Hct (35.8 - 46.7 %) 46.5 MCV (86.3 - 98.9 Fl) 87.9 MCH (28.9 - 34.4 pg) 29.3 MCHC (32.1 - 34.5 G/DL) 33.3 RDW (11.5 - 14.5 SD) 12.7 Plt Count (150 - 450 K/mm3) 242 MPV (7.0 - 9.6 fL) 8.50 Neut % (Auto) (40 - 76 %) 52.0 Lymph % (Auto) (20.5 - 51.1 %) 35.3 [place] % (Auto) (1.7 - 9.3 %) 8.7 Eos % (Auto) (0.0 - 6.0 %) 2.5 Baso % (Auto) (0.0 - 2.0 %) 1.0 Neut # (Auto) (1.8 - 7.6 K/mm3) 3.8 Lymph # (Auto) (0.6 - 3.0 K/mm3) 2.6 [place] # (Auto) (0.2 - 1.5 K/mm3) 0.6 Eos # (Auto) (0.0 - 0.4 K/mm3) 0.2 Baso # (Auto) (0.0 - 0.2 K/mm3) 0.1 Abs Immat Gran (auto) (0.00 - 0.03 x10 3/uL) 0.04 H Immature Gran % (0.0 - 5.0 %) 0.5 Nucleated RBC % (0.0 - 1.0 /100WBC%) 0.0 Radiology data:Recent Impressions:CAT SCAN - CT ABD PELVIS W/O CONT 06/20 899 Report Impression - Status: SIGNED Entered: 06/20/2023 0957 IMPRESSION: 1. No acute process in the abdomen or pelvis.2. Marked hepatic steatosis present. No definite focal hepatic massseen. 3. Short segment infrarenal abdominal aortic aneurysm measuring up to3.0 cm as detailed above. Cannot assess for any aortic dissectiongiven lack of intravenous contrast. Consider 6 month follow-upevaluation to ensure stability.4. Additional chronic/nonacute findings as above.Impression By: Nino Jimenez M.D. Results: labs reviewed, cath.personally reviewed, CT results reviewed Diagnosis, Assessment PlanProblem List/A P: 1. Claudication of both upper extremities due to atherosclerosis 2. AAA (abdominal aortic aneurysm) without rupture 3. Leriche syndrome 4. Tobacco abuse Free Text A P:Patient is a 62-year-old man with CAD, prior PR, 3 cm infrarenal abdominal aortic aneurysm, and right greater than left thigh claudication, erectile dysfunction, and severe bilateral iliac artery occlusive disease. His symptoms and angiographic findings are consistent with Leriche syndrome. I recommend observation for his AAA but he may be a candidate for endovascular repair of hisiliac lesions with kissing iliac stents. We will see him in the office for counseling and scheduling later this month. Thank you for allowing me to participate in the care of this patient. at 1454 [facility] #: [id number] OF REPORT KRQtkoyoqpqvgf1285-62-05J04:40:00L.[id number] 150AVAvailable for patient vqzzHNLQOKUPFBGZQL3234-85-22K33:15:15 [facility] 2023-06-20 10:39:00 [id number] mp/YZiu3t8cL2A9rryThvEpqrAoA7 v98wkBDjohfEnBZ59Uin2MnxQ9S5713-42-10F80:39:36348 0-0015 [place] [id number] PATIENT NAME: FREDA STONE ADMIT DATE: 06/20/23ACCOUNT NO: [id number] ROOM NO: AGE: 62 REPORT TYPE: OPERATIVE REPORT SEX: M ADMITTING PHYSICIAN: ATTENDING PHYSICIAN: Jose De Jesus Willams MD Cardiology OPERATION DATE: 06/20/2023 COPPER PLATE PRINTER: Jose De Jesus Willams MD ECONOMICS INSTRUCTOR: TITLE OF PROCEDURE: Left heart catheterization. INDICATION FOR THE PROCEDURE: Dyspnea, coronary artery disease, peripheral arterial disease, preoperative evaluation. ESTIMATED BLOOD LOSS: Minimal. COMPLICATIONS: None. CONTRAST: 45 mL. ANESTHESIA: Conscious sedation with Versed and fentanyl. 1% lidocaine for local anesthesia. FINAL DIAGNOSES: Calcified arteries, nonobstructive coronary artery disease. RECOMMENDATION: Medical therapy. ACCESS: The right radial. PROCEDURE IN DETAIL: After informed consent, the patient was brought to the cardiac catheterization lab in a stable fasting nonsedated state. He was prepped and draped in the usual sterile fashion. After conscious sedation, the patient received also heparin and the radial cocktail, access to the right radial was done using standard techniques. Left coronary angiogram showed luminal irregularities in the LAD and then mid LAD had 30% plaque. The LAD is not a large vessel distally and does not go around the apex. There is a small ramus intermedius. The circumflex had 2 plaques, in the main circumflex 35% andthe large obtuse marginal 30%. Right coronary angiogram showed a phillips's hookproximal and then 30% plaque, then followed by 35% plaque, then 35% distal, is alarge dominant vessel. Left ventricular angiogram showed ejection fraction of 60%. Left ventricular end-diastolic pressure of 11. No wall motion abnormalities or aortic valve gradient. I used the radial Tig catheter for all the procedure. The patient tolerated the procedure well and there were no complications. He was transferred to the holding area for observation to be discharged in few hours on medical therapy and risk factor modification and then PATIENT NAME: FREDA STONE he will be evaluated for intervention on his iliacs. Dictated By: Jose De Jesus Willams MD Date Dictated: 06/20/2023 10:39:35Date Transcribed: 06/20/2023 11:01:51SFD/[place] #: [id number] ID: [id number] by Jose De Jesus Willams MD On 06/20/2023 11:19:37 AM at 1119 PATIENT NAME: FREDA STONE xualvx4823-13-41I70:01:00L.[id number] lable for patient wooaXRDJHKDFJSETAI8954-57-24L05:09:36 [facility] 2023-06-20 07:23:00 [id number]/RwAp1 YIIvG0VrLxkkD3ljbPXvMH/T6V2k8 LiwPgwf00MMSRhpm9IjQChM7uQ41559-16-19W89:23:11847 0-0004 [facility] [address] [place] [address] PATIENT NAME: FREDA STONE ADMIT DATE: 06/20/23ACCOUNT NO: [id number] ROOM NO: AGE: 62 REPORT TYPE: eELECTROCARDIOGRAM SEX: M ADMITTING PHYSICIAN: ATTENDING PHYSICIAN: Jose De Jesus Willams MD Order:[id number] Reason : ABN STRESS Test Date/Time Stamp:ThuJun 20 2023 07:23:04Blood Pressure : / mmHGVent. Rate : 071 BPM Atrial Rate : 071 BPM P-R Int : 180 ms QRS Dur : 084 ms QT Int : 428 ms P-R-T Axes : 059 023 046 degrees QTc Int : 465 ms Normal sinus rhythmNormal ECGWhen compared with ECG of 06-JUN-2023 08:04,No significant change was foundConfirmed by JOSE DE JESUS WILLAMS ([id number]) on 06/20/2023 9:14:11 AM Referred By: Jose De Jesus Willams Confirmed by:JOSE DE JESUS WILLAMS at 0914 PATIENT NAME: FREDA STONE .[id number] AVAvailable for patient vbnmLQOJUIGFXSQTRF0166-54-91H55:06:50 [facility] 2023-06-19 07:01:00 [id number] wkQ9eLRJJnVrs/fimxNAbtApTQW8y CedUAx+GsOg4wH1uiQo0fb+wHa28755-20-08Y45:01:90786 9-0001 [facility] [id number] [place] [address] PATIENT NAME: FREDA STONE ADMIT DATE: ACCOUNT NO: [id number] ROOM NO: AGE: 62 REPORT TYPE: HISTORY AND PHYSICAL SEX: M ADMITTING PHYSICIAN: ATTENDING PHYSICIAN: Jose De Jesus Willams MD Cardiology PATIENT NAME: FREDA STONE ADMIT DATE:06/20/2023DMISSION DATE: 06/20/2023 07:00:00 COPPER PLATE PRINTER: Myself. REASON FOR ADMISSION: Dyspnea, coronary artery disease, ischemia,atherosclerotic cardiovascular disease for cardiac catheterization and possiblerevascularization. HISTORY OF PRESENT ILLNESS: Freda is a 62-year-old patient with knownatherosclerotic cardiovascular disease, who was at [facility] on 06/06/2023 atwhich time, he underwent peripheral angiograms that showed severe aortoiliacdisease and the plan is to proceed with surgical intervention, so the patientwas evaluated in my office for clearance on 06/11/2023 with a chemical nuclearstress test that was positive for severe inferolateral and posterolateralischemia. Given this information, the patient is here today for left heartcatheterization to be done from the right radial approach to assess for coronaryintervention prior to subjecting the patient to surgical intervention. Thepatient has had no change in his symptoms since the recent dictation. Please seerecent dictation for more details about his history of present illness. PAST MEDICAL HISTORY, PAST SURGICAL HISTORY, SOCIAL HISTORY, FAMILY HISTORY,REVIEW OF SYSTEMS: Remains unchanged from recent dictation. ALLERGIES: NO KNOWN DRUG ALLERGIES. MEDICATIONS: Include Losartan 100 mg daily, verapamil 180 mg daily,rosuvastatin 20 mg daily, aspirin 81 mg daily, clopidogrel 75 mg daily wasstarted after the stress test. PHYSICAL EXAMINATION:GENERAL: Reveals a pleasant 62-year-old patient in no acute distress.VITAL SIGNS: Blood pressure 142/90, pulse 70 and regular, respiratory rate 16and unlabored, temperature afebrile.HEENT: Head atraumatic, normocephalic. Eyes and ENT examination within normalfor age.NECK: Supple, no jugular venous distention, bruits or lymphadenopathy. Normalupstroke.LUNGS: Clear and resonant.HEART: Regular rate and rhythm. No murmurs or gallops.ABDOMEN: Soft, no tenderness, no organomegaly, no masses or bruits.EXTREMITIES: 1+ distal pulses, 1+ edema. Varicose veins noted. No cyanosis or PATIENT NAME: FREDA STONE clubbing.NEUROLOGIC: Alert and oriented x3. The examination appears to be nonfocal. LABORATORY DATA: Pending. Noninvasive cardiovascular workup and previouscardiovascular workup was enclosed and reviewed. , IMPRESSION: This is a 62-year-old patient with advanced atheroscleroticcardiovascular disease, symptomatic peripheral arterial disease in need ofsurgical consultation. He has dyspnea and significant ischemia, indicatingsignificant coronary artery disease. He is here for cardiac catheterization toassess his coronaries and to proceed with revascularization if indicated. Thepatient has also renal insufficiency, so we will be careful like usual with thecontrast and given his peripheral arterial disease the access will be from theright radial. PLAN: The recommendation is to proceed with above-mentioned procedures. Therisks and benefits of the planned procedure were discussed in detail with thepatient and available family members and he is willing to proceed. The patientalso was strongly advised to quit tobacco and cutdown significantly on hisalcohol intake. Continue current medications and risk factor modification. Dictated By: Jose De Jesus Willams MD Date Dictated: 06/19/2023 07:01:36Date Transcribed: 06/19/2023 07:23:34SFD/THEJob #: [id number] ID: [id number] and Edited by Jose De Jesus Willams MD On 06/19/23 4:57:25 PM at 0702 PATIENT NAME: FREDA STONE and physical plpolkjsvbk7628-96-17A06:23:00L.[id number] VAvailable for patient tykyZLTKOPNQTQWOQS9212-65-05O16:49:03 [facility] 2023-06-06 08:04:00 [id number]/ F5vLWSh8/3yxLDNS/bsAx0pm54X4s rdrcPj3frM55yhjPHw4FHck8/4J4054-20-60F64:04:45215 0004 [facility] [address] [place] [address] PATIENT NAME: FREDA STONE ADMIT DATE: 06/06/23ACCOUNT NO: [id number] ROOM NO: AGE: 62 REPORT TYPE: eELECTROCARDIOGRAM SEX: M ADMITTING PHYSICIAN: ATTENDING PHYSICIAN: Jose De Jesus Willams MD Order:[id number] Reason : Post Procedure Test Date/Time Stamp:[facility] Jun 06 2023 08:04:12Blood Pressure : / mmHGVent. Rate : 082 BPM Atrial Rate : 082 BPM P-R Int : 186 ms QRS Dur : 084 ms QT Int : 416 ms P-R-T Axes : 075 061 060 degrees QTc Int : 486 ms Normal sinus rhythmLow voltage QRSNonspecific ST abnormalityProlonged QTAbnormal ECGWhen compared with ECG of 06-JUN-2023 05:32,No significant change was foundConfirmed by JOSE DE JESUS WILLAMS ([id number]) on 06/06/2023 8:25:49 AM Referred By: Jose De Jesus Willams Confirmed by:JOSE DE JESUS WILLAMS at 0825 PATIENT NAME: FREDA STONE .[id number] AVAvailable for patient ysfxJDXBJQFMUELSRB8328-42-29U97:26:25 [facility] 2023-06-06 07:08:00 [id number]/vH3W vlF1wpBFlnfWvBThsy5ThYAfUlQ7R VeEtBlMSoxncHI8lr+vH/HxPTO01220-71-42T20:08:13798 7-0005 [facility] [address] [place] [address] PATIENT NAME: FREDA STONE ADMIT DATE: 06/06/23ACCOUNT NO: [id number] ROOM NO: AGE: 62 REPORT TYPE: OPERATIVE REPORT SEX: M ADMITTING PHYSICIAN: ATTENDING PHYSICIAN: Jose De Jesus Willams MD Cardiology OPERATION DATE: 06/06/2023 COPPER PLATE PRINTER: Myself. INDICATION FOR THE PROCEDURE: Severe symptomatic peripheral arterial disease, more so on the right by symptoms a small abdominal aortic aneurysm. TITLE OF PROCEDURE: 1. Abdominal and bilateral selective iliofemoral angiograms.2. First order angiogram of the left lower extremity.3. Closing device. CONTRAST: 100 mL. ANESTHESIA: Conscious sedation with Versed and fentanyl. 1% lidocaine for local anesthesia. ESTIMATED BLOOD LOSS: Minimal. COMPLICATIONS: None. FINAL DIAGNOSIS: Severe aortoiliac disease. RECOMMENDATION: Referral for Vascular Surgery. DESCRIPTION OF PROCEDURE: After informed consent, the patient was brought to the cardiac catheterization lab in a stable fasting nonsedated state. He was prepped and draped in the usual sterile fashion. After conscious sedation, 1% lidocaine was administered to the left common femoral artery area for local anesthesia. A 6-Swedish sheath was placed in the left common femoral artery using standard techniques and fluoroscopy. After heparinization, selective first order angiogram of the left lower extremity showed 20% popliteal plaquing and then the anterior tibial artery is occluded. Peroneal is subtotal. There is 1-vessel runoff distally. The SFA and external iliacs appeared to be free ofangiographic disease. Abdominal angiogram showed 25% right renal artery plaquing, small abdominal aortic aneurysm and then there is a severe aortoiliac disease at both sides up to 95% with tapering of the aorta distally and poststenotic dilatation on the right. The disease is best managed by Surgery or bifurcating stent like an EVAR, follow up angiogram of the right lower extremityshowed 20% plaquing of the right popliteal. An occlusion of the anterior tibialand 2-vessel runoff distally. The left groin was sealed using Angio-Seal. PATIENT NAME: FREDA STONE There were no complications. The patient tolerated the procedure well. He willbe discharged in few hours on medical therapy and he will be referred as an outpatient for a surgical evaluation. Dictated By: Jose De Jesus Willams MD Date Dictated: 06/06/2023 07:08:29Date Transcribed: 06/06/2023 07:40:34SFD/THEJob #: [id number] ID: [id number] by Jose De Jesus Willams MD On 06/06/2023 08:29:33 AM at 0829 PATIENT NAME: FREDA STONE seahwh7826-91-80C29:40:00L.[id number] lable for patient ekenFKUCELSWKHUEXP9859-86-26X12:29:55 [facility] 2023-06-06 05:32:00 [id number] ZdIpW+hg+PZshjcY34A8HKhf27Z4k uXsmpo8aUfmUAAvsQSXqWC5yREl0778-62-94Q86:32:84139 7-[address] [address] PATIENT NAME: FREDA STONE ADMIT DATE: 06/06/23ACCOUNT NO: [id number] ROOM NO: AGE: 62 REPORT TYPE: eELECTROCARDIOGRAM SEX: M ADMITTING PHYSICIAN: ATTENDING PHYSICIAN: Jose De Jesus Willams MD Order:[id number] Reason : Pre Procedure Test Date/Time Stamp:ThuJun 06 2023 05:32:31Blood Pressure : / mmHGVent. Rate : 091 BPM Atrial Rate : 091 BPM P-R Int : 170 ms QRS Dur : 080 ms QT Int : 396 ms P-R-T Axes : 060 049 057 degrees QTc Int : 487 ms Normal sinus rhythmLow voltage QRSProlonged QTAbnormal ECGNo previous ECGs availableConfirmed by JOSE DE JESUS WILLAMS ([id number]) on 06/06/2023 6:23:06 AM Referred By: Jose De Jesus Willams Confirmed by:JOSE DE JESUS WILLAMS at 0623 PATIENT NAME: FREDA STONE .[id number] AVAvailable for patient [id number]:23:32 [facility] 2023-06-05 07:06:00 [id number] [address] PATIENT NAME: FREDA STONE ADMIT DATE: ACCOUNT NO: [id number] ROOM NO: AGE: 62 REPORT TYPE: HISTORY AND PHYSICAL SEX: M ADMITTING PHYSICIAN: ATTENDING PHYSICIAN: Jose De Jesus Willams MD Cardiology PATIENT NAME: FREDA STONE ADMIT DATE:06/06/2023DMISSION DATE: 06/06/2023 06:30:00 COPPER PLATE PRINTER: Myself. REASON FOR ADMISSION: Symptomatic peripheral arterial disease for angiographyand possible revascularization. HISTORY OF PRESENT ILLNESS: Freda Stone is a 62-year-old patient with knownatherosclerotic cardiovascular disease and previous history of abdominal aorticaneurysm diagnosed by CT on 02/18/2023, it was 3 cm partially thrombosed. Atthat time, the right common iliac was 1.5 cm. The patient lately has beenhaving worsening symptoms of PAD, symptoms are being much worse on the rightside. The patient had an arterial Doppler examination that showed the rightside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
[2023-09-17] MEDS ORDERED: ONDANSETRON 4 MG/2 ML VIAL ONE (00:45)
[2023-09-17] MEDS ORDERED: ASPIRIN 81 MG CHEWABLE TABLET ONE (00:45)
[2023-09-17] MEDS ORDERED: MORPHINE 4 MG/ML SYR ONE ×2 (00:46→01:23)
[2023-09-17] MEDS ORDERED: NA CHLORIDE 0.9% 1,000 ML ONE (00:46)
[2023-09-17 00:59] LABS: Absolute Basophils 0.1 K/uL (0-0.5); Absolute Eosinophils 0.1 K/uL (0-0.5); Absolute Lymphocytes (CBC) 2.1 K/uL (0.7-4.9); Absolute Monocytes 0.7 K/uL (0.1-1.3); Basophils % 1.1 % (0-1.3); Eosinophils % 2.1 % (0-4.4); Hematocrit 41.9 % (39.6-49.0); Hemoglobin 14.1 g/dL (13.6-17.9); Lymphocytes % 30.5 % (15.3-44.8); MCH 29.7 pg (27.0-35.0); MCHC 33.7 g/dL (32.0-36.0); MCV 88.3 fL (80-100); MPV 6.7 fL (7.6-11.3); Monocytes % 9.5 % (3.3-12.3); Neutrophils % 56.8 % (41.7-73.7); Platelets 255 thou/uL (152-406); RBC Red Blood Cell Count 4.74 M/uL (4.33-5.43); Red Cell Distribution Width 13.7 % (12.1-15.2)
[2023-09-17 01:00] LABS: PT Prothrombin Time 11.6 SECONDS (9.5-12.5); Protime INR 1.06
[2023-09-17 01:24] LABS: ALT/SGPT 33 U/L (16-61); AST/SGOT 20 U/L (15-37); Albumin 3.4 g/dL (3.4-5.0); Albumin/Globulin Ratio 0.9 (1.1-1.8); Alkaline Phosphatase 81 U/L (45-117); Anion Gap 10.8 mEq/L (5.0-15.0); BUN Blood Urea Nitrogen 20 mg/dL (7-18); Bicarbonate 26 mEq/L (21-32); Bilirubin Total 0.4 mg/dL (0.2-1.0); Globulin 3.8 g/dL (2.3-3.5); Glomerular Filtration Rate 49 ml/min (=/>90); Glucose Level 151 mg/dL (74-106); Magnesium 2.2 mg/dL (1.6-2.4); NT PRO-BNP 87 pg/mL (<125); Potassium 3.8 mEq/L (3.5-5.1); Protein, Total 7.2 g/dL (6.4-8.2); Sodium Level 137 mEq/L (136-145)
[2023-09-17 01:30] LABS: Bilirubin Direct < 0.2 mg/dL (0-0.2); Bilirubin Indirect, Calculated 0.2 mg/dL (0.2-0.8)
--- NOTE | 2023-09-17 05:13 | ER ---
Nurse's Notes [facility] Name: Kole Stone Age: 62 yrs Sex: Male : 1960 Arrival Date: 09/17/2023 Time: 00:27 Bed 7 Private MD: Diagnosis: Chest pain, unspecified;Infrarenal abdominal aortic aneurysm 3.5 cm in diameter Presentation: 09/16 00:39 Chief complaint: Patient states: I have chest pain that started an hour ago. I have jb4 been having pain in my back all day and now it radiates to my chest. It is a pressure pain in the middle of my chest. Coronavirus screen: At this time, the client does not indicate any symptoms associated with coronavirus-19. Ebola Screen: No symptoms or risks identified at this time. Initial Sepsis Screen: Does the patient meet any 2 criteria? No. Patient's initial sepsis screen is negative. Does the patient have a suspected source of infection? No. Patient's initial sepsis screen is negative. Risk Assessment: Do you want to hurt yourself or someone else? Patient reports no desire to harm self or others. Onset of symptoms was September 17, 2023. Transition of care: patient was not received from another setting of care. 00:39 Method Of Arrival: Wheelchair jb4 00:39 Acuity: JOYCE 2 jb4 Historical: - Allergies: 00:42 No Known Allergies; jb4 - PMHx: 00:42 Hypertension; Hyperlipidemia; jb4 - PSHx: 00:42 None; jb4 - Immunization history:: Adult Immunizations up to date. - Infectious Disease History:: Denies. - Social history:: Smoking status: Patient reports the use of cigarette tobacco products, smokes one pack cigarettes per day. Patient uses alcohol, occasionally. - Family history:: not pertinent. Screenin:40 [facility] ED Fall Risk Assessment (Adult) History of falling in the last 3 months, km8 including since admission No falls in past 3 months (0 pts) Confusion or Disorientation No (0 pts) Intoxicated or Sedated No (0 pts) Impaired Gait No (0 pts) Mobility Assist Device Used No (0 pt) Altered Elimination No (0 pt) Score/Fall Risk Level 0 - 2 = Low Risk Oriented to surroundings, Maintained a safe environment, Educated pt \T\ family on fall prevention, incl call for assistance when getting out of bed, Assessed \T\ reinforced patient's understanding of fall precautions. Abuse screen: Denies threats or abuse. Denies injuries from another. Nutritional screening: No deficits noted. Tuberculosis screening: No symptoms or risk factors identified. Assessment: 00:40 Reassessment: Patient appears in no apparent distress at this time. No changes from km8 previously documented assessment. Patient and/or family updated on plan of care and expected duration. Pain level reassessed. Patient is alert, oriented x 3, equal unlabored respirations, skin warm/dry/pink. General: Appears uncomfortable, Behavior is calm, cooperative, appropriate for age. Pain: Complains of pain in xiphoid area Pain does not radiate. Pain currently is 9 out of 10 on a pain scale. Quality of pain is described as aching, Pain began gradually. Neuro: Level of Consciousness is awake, alert, obeys commands, Oriented to person, place, time, situation. Cardiovascular: Reports chest pain, Denies shortness of breath, Patient's skin is warm and dry. Rhythm is sinus rhythm. Respiratory: Airway is patent Respiratory effort is even, labored, Respiratory pattern is regular, symmetrical. GI: No signs and/or symptoms were reported involving the gastrointestinal system. : No signs and/or symptoms were reported regarding the genitourinary system. EENT: No signs and/or symptoms were reported regarding the EENT system. Derm: No signs and/or symptoms reported regarding the dermatologic system. Skin is intact, is healthy with good turgor, Skin is dry, Skin is pink, warm \T\ dry. normal, Skin temperature is warm. Musculoskeletal: No signs and/or symptoms reported regarding the musculoskeletal system. Range of motion: intact in all extremities. 01:47 Reassessment: Patient appears in no apparent distress at this time. No changes from km8 previously documented assessment. Patient and/or family updated on plan of care and expected duration. Pain level reassessed. Patient is alert, oriented x 3, equal unlabored respirations, skin warm/dry/pink. 02:04 Reassessment: Patient appears in no apparent distress at this time. tm6 03:03 Reassessment: Patient appears in no apparent distress at this time. Patient is alert, tm6 oriented x 3, equal unlabored respirations, skin warm/dry/pink. 04:02 Reassessment: Patient appears in no apparent distress at this time. No changes from km8 previously documented assessment. 05:06 Reassessment: No changes from previously documented assessment. tm6 Vital Signs: 00:39 BP 164 / 101; Pulse 76; Resp 16; Temp 97.6(O); Pulse Ox 100% on R/A; Weight 99.79 kg jb4 (R); Height 6 ft. 1 in. (R); Pain 7/10; 01:00 BP 155 / 95; Pulse 75; Resp 18; Pulse Ox 100% on R/A; km8 01:30 BP 154 / 91; Pulse 73; Resp 16; Pulse Ox 96% on R/A; km8 02:00 BP 171 / 104; Pulse 70; Resp 15; Pulse Ox 100% ; tm6 02:15 BP 151 / 93; Pulse 71; Resp 16; Pulse Ox 97% on R/A; km8 03:02 BP 171 / 99; Pulse 75; Pulse Ox 93% on R/A; tm6 03:30 BP 155 / 82; Pulse 75; Resp 18; Pulse Ox 95% on R/A; km8 04:00 BP 156 / 83; Pulse 74; Resp 18; Pulse Ox 94% on R/A; km8 05:06 BP 128 / 56; Pulse 87; Pulse Ox 100% ; tm6 05:19 Temp 97.8(TE); Pain 0/10; tm6 05:19 Resp 19; tm6 00:39 Body Mass Index 29.03 (99.79 kg, 185.42 cm) jb4 00:39 Pain Scale: Adult jb4 05:19 Pain Scale: Adult tm6 [place] Coma Score: 00:40 Eye Response: spontaneous(4). Motor Response: obeys commands(6). Verbal Response: km8 oriented(5). Total: 15. ED Course: 00:28 Patient arrived in ED. mr 00:32 Renny Aguila MD is Attending Physician. sp4 00:40 O2 via room air. km8 00:41 Cynthia Hernández, SUKHJINDER is Primary Nurse. km8 00:41 Basic Metabolic Panel Sent. km8 00:41 CBC with Diff Sent. km8 00:41 LFT's Sent. km8 00:41 Magnesium Sent. km8 00:41 NT PRO-BNP Sent. km 00:41 PT-INR Sent. 00:41 Troponin HS Sent. km8 00:41 Initial lab(s) drawn, by me, sent to lab. EKG done, by ED staff, reviewed by Renny wen8 Ayla DELGADO. Inserted saline lock: 20 gauge in left antecubital area, using aseptic technique. Blood collected. 00:42 Triage completed. jb4 00:42 Patient has correct armband on for positive identification. Placed in gown. Bed in low km8 position. Call light in reach. Side rails up X2. Client placed on continuous cardiac and pulse oximetry monitoring. NIBP monitoring applied. surveillance monitor on. Pulse ox on. NIBP on. 00:42 Arm band placed on right wrist. jb4 00:48 XRAY Chest (1 view) In Process Unspecified. EDMS 01:05 Diet: Patient given water. km8 01:58 Chest Abd Pelvis Wo Con In Process Unspecified. EDMS 05:12 Jose De Jesus Willams MD is Referral Physician. sp4 05:15 No provider procedures requiring assistance completed. km8 05:19 IV discontinued, intact, bleeding controlled, No redness/swelling at site. Pressure tm6 dressing applied. 05:19 Provided Education on: follow up recs. tm6 Administered Medications: 00:55 Drug: Aspirin PO Chewable Tablet 324 mg PO once; 81 mg tablets x 4 Route: PO; 01:55 Follow up: Response: No adverse reaction 00:55 Drug: morphine IVP or IV 6 mg IVP once over 4 mins Route: IVP; Infused Over: 4 mins; [facility] Site: left antecubital; 01:15 Follow up: Response: No adverse reaction; Pain is unchanged, physician notified 00:55 Drug: Ondansetron IVP 4 mg IVP once; over 2 minutes Route: IVP; Site: left antecubital; [facility] 04:24 Follow up: Response: No adverse reaction 00:55 Drug: NS 0.9% IV 1000 ml IV at 125 ml/hr continuous Route: IV; Rate: 125 ml/hr; Site: [facility] left antecubital; 05:15 Follow up: IV Status: Completed infusion; IV Intake: 500ml 01:27 Drug: morphine IVP or IV 4 mg IVP once over 4 mins Route: IVP; Infused Over: 4 mins; tm6 Site: left antecubital; 02:15 Follow up: Response: No adverse reaction; Pain is decreased km8 Medication: 00:40 VIS not applicable for this client. km8 Intake: 05:15 IV: 500ml; Total: 500ml. km8 Outcome: 05:13 Discharge ordered by . sp4 05:19 Discharged to home ambulatory, tm6 05:19 Condition: stable 05:19 Discharge instructions given to patient, Instructed on discharge instructions, follow up and referral plans. 05:20 Patient left the ED. tm6 Signatures: Dispatcher [employer] EDMS ReyesSarahy meadows, Reg Reg mr Vlad Jaimes, RN RN jb4 Renny Aguila MD MD sp4 Cynthia Hernández RN RN km8 Zuleyka Watts RN RN tm6 Corrections: (The following items were deleted from the chart) 00:55 00:55 morphine IVP or IV 6 mg IVP in right antecubital over 4 mins km8 km8 00:56 00:55 NS 0.9% IV 1000 ml IV at 125 ml/hr in right antecubital km8 km8
--- NOTE | 2023-09-17 05:13 | EDPHYS ---
Physician Documentation [facility] Name: Kole Stone Age: 62 yrs Sex: Male : 1960 Arrival Date: 09/17/2023 Time: 00:27 Bed 7 Private MD: ED Physician Renny Aguila HPI: 09/16 00:32 This 62 yrs old Male presents to ER via Unassigned with complaints of Chest sp4 Pain. 02:38 62-year-old male presents with acute onset midsternal chest pain. Patient has history sp4 of hypertension on verapamil. Historical: - Allergies: 00:42 No Known Allergies; jb4 - PMHx: 00:42 Hypertension; Hyperlipidemia; jb4 - PSHx: 00:42 None; jb4 - Immunization history:: Adult Immunizations up to date. - Infectious Disease History:: Denies. - Social history:: Smoking status: Patient reports the use of cigarette tobacco products, smokes one pack cigarettes per day. Patient uses alcohol, occasionally. - Family history:: not pertinent. ROS: 02:38 Constitutional: Negative for fever, chills, and weight loss, positive for chest pain sp4 02:38 All other systems are negative, Exam: 02:38 Constitutional: This is a well developed, well nourished patient who is awake, alert, sp4 and in no acute distress. Head/Face: Normocephalic, atraumatic. Eyes: Pupils equal round and reactive to light, extra-ocular motions intact. Lids and lashes normal. Conjunctiva and sclera are not injected. Cornea within normal limits. Periorbital areas with no swelling, redness, or edema. ENT: Nares patent. No nasal discharge, no septal abnormalities noted. Tympanic membranes are normal and external auditory canals are clear. Oropharynx with no redness, swelling, or masses, exudates, or evidence of obstruction, uvula midline. Mucous membranes moist. Neck: Trachea midline, no thyromegaly or masses palpated, and no cervical lymphadenopathy. Supple, full range of motion without nuchal rigidity, or vertebral point tenderness. Chest/axilla: Normal chest wall appearance and motion. Nontender with no deformity. No lesions are appreciated. Cardiovascular: Regular rate and rhythm with a normal S1 and S2. No gallops, murmurs, or rubs. Normal PMI, no JVD. No pulse deficits. Respiratory: Lungs have equal breath sounds bilaterally, clear to auscultation and percussion. No rales, rhonchi or wheezes noted. No increased work of breathing, no retractions or nasal flaring. Abdomen/GI: Soft, with normal bowel sounds. No distension or tympany. No guarding or rebound. No evidence of tenderness throughout. Back: No spinal tenderness. No costovertebral tenderness. Skin: Warm, dry with normal turgor. Normal color with no rashes, no lesions, and no evidence of cellulitis. MS/ Extremity: Pulses equal, no cyanosis. Neurovascular intact. Full, normal range of motion. Neuro: Awake and alert, GCS 15, oriented to person, place, time, and situation. Cranial nerves II-XII grossly intact. Motor strength 5/5 in all extremities. Sensory grossly intact. Psych: Awake, alert, with orientation to person, place and time. Behavior, mood, and affect are within normal limits 02:38 ECG was reviewed by the Attending Physician. 0033, normal sinus rhythm at rate of 73, normal EKG Vital Signs: 00:39 BP 164 / 101; Pulse 76; Resp 16; Temp 97.6(O); Pulse Ox 100% on R/A; Weight 99.79 kg jb4 (R); Height 6 ft. 1 in. (R); Pain 10; 01:00 BP 155 / 95; Pulse 75; Resp 18; Pulse Ox 100% on R/A; km8 01:30 BP 154 / 91; Pulse 73; Resp 16; Pulse Ox 96% on R/A; km8 02:00 BP 171 / 104; Pulse 70; Resp 15; Pulse Ox 100% ; tm6 02:15 BP 151 / 93; Pulse 71; Resp 16; Pulse Ox 97% on R/A; km8 03:02 BP 171 / 99; Pulse 75; Pulse Ox 93% on R/A; tm6 03:30 BP 155 / 82; Pulse 75; Resp 18; Pulse Ox 95% on R/A; km8 04:00 BP 156 / 83; Pulse 74; Resp 18; Pulse Ox 94% on R/A; km8 05:06 BP 128 / 56; Pulse 87; Pulse Ox 100% ; tm6 05:19 Temp 97.8(TE); Pain 0/10; tm6 05:19 Resp 19; tm6 00:39 Body Mass Index 29.03 (99.79 kg, 185.42 cm) jb4 00:39 Pain Scale: Adult jb4 05:19 Pain Scale: Adult tm6 [place] Coma Score: 00:40 Eye Response: spontaneous(4). Motor Response: obeys commands(6). Verbal Response: km8 oriented(5). Total: 15. MDM: 00:33 Patient medically screened. sp4 02:41 HEART Score: History: Slightly Suspicious (0), ECG: Normal (0), Age: > 45 and < 65 sp4 years (1), Risk Factors: 1 or 2 risk factors (1), Troponin: < or = 1 x Normal Limit (0), Total Score = 2. ED course: EXAM DESCRIPTION: Chest Single View CLINICAL HISTORY: CHEST PAIN COMPARISON: None FINDINGS: Cardiac silhouette is within normal limits. EKG leads project over the chest. There is no focal parenchymal or pleural disease. There is no acute osseous process visualized. IMPRESSION: No evidence of acute cardiopulmonary disease.. 02:42 ED course: EXAM DESCRIPTION: Chest Single View CLINICAL HISTORY: CHEST PAIN COMPARISON: sp4 None FINDINGS: Cardiac silhouette is within normal limits. EKG leads project over the chest. There is no focal parenchymal or pleural disease. There is no acute osseous process visualized. IMPRESSION: No evidence of acute cardiopulmonary disease.. ED course: IMPRESSION: 1. No acute thoracic or abdominopelvic findings. 2. Upper lobe predominant pulmonary emphysema. 3. Infrarenal abdominal aortic aneurysm measuring up to 3.1 cm. Recommend follow-up every 3 years. 4. Hepatomegaly with hepatic steatosis. 5. Cholelithiasis. 6. Colonic diverticulosis without diverticulitis. Electronically signed by: Wilfred Abrams MD 09/17/2023 02:23 AM. 05:11 Differential diagnosis: acute myocardial infarction, acute pericarditis, anxiety, sp4 coronary artery disease chest wall pain, cholecystitis. The patient was given aspirin in the Emergency Department. Data reviewed: vital signs, nurses notes, old medical records, lab test result(s), EKG, radiologic studies, CT scan, plain films. ED course: Workup today is unremarkable negative troponin x 2. Incidental finding includes infrarenal abdominal aortic aneurysm 3.1 cm. 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 Patient will be advised to see his relay telegrapher none emergently for another office evaluation. At this time patient stable for discharge home. . 09/16 00:33 Order name: Basic Metabolic Panel; Complete Time: 02:37 4 09/16 00:33 Order name: CBC with Diff; Complete Time: 02:37 09/16 00:33 Order name: LFT's; Complete Time: :4 09/16 00:33 Order name: Magnesium; Complete Time: 02:37 4 09/16 00:33 Order name: NT PRO-BNP; Complete Time: : 09/16 00:33 Order name: PT-INR; Complete Time: :09/16 00:33 Order name: Troponin HS; Complete Time: 02:37 [facility] 09/16 02:23 Order name: Troponin High Sensitivity: 2 hours after initial; Complete Time: 05:04 4 09/16 00:33 Order name: XRAY Chest (1 view) [facility] 09/16 01:50 Order name: Chest Abd Pelvis Wo Con EDMS 09/16 00:33 Order name: EKG; Complete Time: 00:33 09/16 00:33 Order name: Cardiac monitoring; Complete Time: 00:35 09/16 00:33 Order name: EKG - Nurse/Tech; Complete Time: 00:35 09/16 00:33 Order name: IV Saline Lock; Complete Time: 00:09/16 00:33 Order name: Labs collected and sent; Complete Time: 00:09/16 00:33 Order name: O2 Per Protocol; Complete Time: 00:09/16 00:33 Order name: O2 Sat Monitoring; Complete Time: 00: EC:38 Rate is 73 beats/min. Rhythm is regular, Normal Sinus Rhythm. QRS [place] is Normal. CO sp4 interval is normal. QRS interval is normal. QT interval is normal. No Q waves. T waves are Normal. No ST changes noted. Clinical impression: Normal ECG. Interpreted by me. Reviewed by me. Administered Medications: 00:55 Drug: Aspirin PO Chewable Tablet 324 mg PO once; 81 mg tablets x 4 Route: PO; 8 01:55 Follow up: Response: No adverse reaction 00:55 Drug: morphine IVP or IV 6 mg IVP once over 4 mins Route: IVP; Infused Over: 4 mins; km8 Site: left antecubital; 01:15 Follow up: Response: No adverse reaction; Pain is unchanged, physician notified 00:55 Drug: Ondansetron IVP 4 mg IVP once; over 2 minutes Route: IVP; Site: left antecubital; [facility] 04:24 Follow up: Response: No adverse reaction 00:55 Drug: NS 0.9% IV 1000 ml IV at 125 ml/hr continuous Route: IV; Rate: 125 ml/hr; Site: [facility] left antecubital; 05:15 Follow up: IV Status: Completed infusion; IV Intake: 500ml 01:27 Drug: morphine IVP or IV 4 mg IVP once over 4 mins Route: IVP; Infused Over: 4 mins; tm6 Site: left antecubital; 02:15 Follow up: Response: No adverse reaction; Pain is decreased [facility] Disposition Summary: 09/17/23 05:13 Discharge Ordered Problem: new sp4 Symptoms: have improved sp4 Condition: Stable sp4 Diagnosis - Chest pain, unspecified sp4 - Infrarenal abdominal aortic aneurysm 3.5 cm in diameter sp4 Followup: sp4 - With: Jose De Jesus Willams MD - When: 7 - 10 days - Reason: Recheck today's complaints Discharge Instructions: - Discharge Summary Sheet sp4 - Abdominal Aortic Aneurysm, [id number] sp4 Forms: - Patient Portal Instructions sp4 Signatures: Dispatcher [employer] Vlad Michaud, RN RN jb4 Renny Aguila MD MD sp4 Cynthia Hernández RN RN km8 Zuleyka Watts RN RN tm6 Corrections: (The following items were deleted from the chart) 00:33 00:33 BASIC METABOLIC PANEL+C.LAB.BRZ ordered. EDMS EDMS 00:33 00:33 CBC+H.LAB.BRZ ordered. EDMS EDMS 00:33 00:33 HEPATIC FUNCTION+C.LAB.BRZ ordered. EDMS EDMS 00:33 00:33 MAGNESIUM+C.LAB.BRZ ordered. EDMS EDMS 00:33 00:33 PROBNP+C.LAB.BRZ ordered. EDMS EDMS 00:33 00:33 PROTIME (+INR)+COAG.LAB.BRZ ordered. EDMS EDMS 00:33 00:33 Troponin High Sensitivity+C.LAB.BRZ ordered. EDMS EDMS 00:41 00:41 Angio Aorta For Dissection+CT.RAD.BRZ ordered. EDMS EDMS
[2023-09-17 05:57] VITALS: BP 128/56; O2SAT 100
[2023-09-17 05:58] VITALS: TEMP 97.8
--- NOTE | 2023-09-17 12:07 | RAD REPORT ---
EXAM DESCRIPTION: RAD - Chest Single View - 09/17/2023 12:46 am CLINICAL HISTORY: CHEST PAIN COMPARISON: None FINDINGS: Cardiac silhouette is within normal limits. EKG leads project over the chest. There is no focal parenchymal or pleural disease. There is no acute osseous process visualized. IMPRESSION: No evidence of acute cardiopulmonary disease. Electronically signed by: Bradly Gaxiola MD 09/17/2023 01:36 AM CDT Due to temporary technical issues with the PACS/Fluency reporting system, reports are being signed by the in house radiologist without review as a courtesy to ensure prompt reporting. The interpreting R adiologist is fully responsible for the content of the report.
--- NOTE | 2023-09-17 12:20 | RAD REPORT ---
EXAM DESCRIPTION: CT - Chest Abd Pelvis Wo Con - 09/17/2023 6:33 am CLINICAL HISTORY: 62 years Male; chest pain; Bed Name: 7 TECHNIQUE: CT of the chest, abdomen, and pelvis without contrast. All CT scans at this facility use dose modulation, iterative reconstruction, and/or weight based dosi ng when appropriate to reduce radiation dose to as low as reasonably achievable. COMPARISON: Chest x-ray 09/17/2023 FINDINGS: CHEST: Lower neck/mediastinum: Heart size is normal. No pericardial effusion. No mediastinal or hilar adenopathy. Thoracic aortic atherosclerosis. No mediastinal masses. Lungs/Airways/pleura: Upper lobe predominant pulmonary emphysema. No focal consolidation. Bilateral dependent reticular opacities, likely atelectasis. No suspicious pulmonary masses. Bones and soft tissues: No acute osseous finding. ABDOMEN/PELVIS: Abdomen: Stomach: Within normal limits Liver: No focal lesions. Hepatic steatosis. Enlarged. No intrahepatic ductal distention. Gallbladder: Cholelithiasis. Pancreas: Within normal limits Spleen: Within normal limits Right kidney: No hydronephrosis. No renal or ureteral calculi. Multiple renal cysts, largest in the m idpole measuring up to 1.2 cm. Left kidney: No hydronephrosis. No renal or ureteral calculi. Multiple renal cysts with benign hyperd ense cyst in the inferior pole. Adrenal glands: Within normal limits Vascular structures: Atherosclerosis of the abdominal aorta and major branches. Infrarenal abdominal aortic aneurysm measuring up to 3.1 cm. Lymph nodes: No lymphadenopathy by size criteria Pelvis: Small bowel: No significant distention. Appendix: Within normal limits Colon: No distention or acute pericolonic edema. Colonic diverticulosis. Peritoneum: No free intraperitoneal fluid or air. Bones: No acute bone findings. Bladder: Unremarkable. Reproductive organs: No acute findings. Note that evaluation of the bowel and solid organs is somewhat limited due to lack of intravenous and oral contrast. IMPRESSION: 1. No acute thoracic or abdominopelvic findings. 2. Upper lobe predominant pulmonary emphysema. 3. Infrarenal abdominal aortic aneurysm measuring up to 3.1 cm. Recommend follow-up every 3 years. 4. Hepatomegaly with hepatic steatosis. 5. Cholelithiasis. 6. Colonic diverticulosis without diverticulitis. Electronically signed by: Wilfred Abrams MD 09/17/2023 02:23 AM CDT Due to temporary technical issues with the PACS/Fluency reporting system, reports are being signed by the in house radiologist without review as a courtesy to ensure prompt reporting. The interpreting R adiologist is fully responsible for the content of the report.
--- NOTE | 2023-09-17 14:00 | EKG ---
Test Date: 2023-09-17 Test Time: 00:33:28 Instructional Support Services Director: RV MEASUREMENT RESULTS: Intervals: Rate: 73 OH: 150 QRSD: 80 QT: 428 QTc: 471 [place]: P: 69 OH: 150 QRS: 68 T: 76 INTERPRETIVE STATEMENTS: Normal sinus rhythm Nonspecific ST abnormality Abnormal ECG Compared to ECG 08/10/2018 00:14:14 ST (T wave) deviation now present Electronically Signed On 09-17-23 13:59:08 CDT by Huber Maurer
== END 2023-09-17 05:20 | disposition home or self-care (01) ==
LOC: ER 00:27
DX: I71.43 Infrarenal abdominal aortic aneurysm, without rupture (principal); E78.5 Hyperlipidemia, unspecified; I10 Essential (primary) hypertension; F17.210 Nicotine dependence, cigarettes, uncomplicated
CPT/HCPCS: 96361; 93005; 85025; 80048; 36415; 83735; 85610; 80076; 84484 ×2; 83880; 71250; 74176; 71045; 96375; 96374; 99285; J2405; J7030